=== PATIENT | female | born 1975 | race Caucasian/White ===

== ENCOUNTER 2019-05-23 18:35 | Inpatient (IN) | payer MEDICAID, OTHER ==
--- NOTE | 2019-05-23 19:14 | ED ---
Psych HPI - General Source: patient, police Mode of arrival: ambulatory <Latoya Arauz - Last Filed: 05/23/19 23:15> <Teresa Fernando - Last Filed: 05/24/19 00:19> - General Chief Complaint: Psychiatric Symptoms Stated Complaint: DOCUMENT HEALINGS Time Seen by Provider: 05/23/19 18:56 - History of Present Illness Initial Comments: 43-year-old female patient is brought in by the [facility] department for psychiatric evaluation. Patient's family is concerned regarding her mental state and ability for her to care for her children. She has been sending bizarre text messages to her son's father. When asked why she is here patient states that she is here to "document my healings". Patient states that she was diagnosed with bipolar in 2009 and has cured herself using positive thinking and natural medicine and she would like it documented. Patient denies any suicidal or homicidal ideation. She denies alcohol or drug use. She denies any physical symptoms or concerns. She has had previous mental health admissions in the past. Patient denies any recent rash, fever, chills, shortness breath, chest pain, abdominal pain, nausea, vomiting, diarrhea, constipation, back pain, numbness, tingling, dizziness, weakness, hematuria, dysuria, urinary urgency, urinary frequency, headache, visual changes, or any other complaints. (Latoya Arauz) - Related Data Home Medications Medication Instructions Recorded Confirmed No Known Home Medications 05/23/19 05/23/19 Allergies Allergy/AdvReac Type Severity Reaction Status Date / Time lorazepam [From Ativan] AdvReac AGGRESSION Verified 05/23/19 23:45 Review of Systems ROS Other: All systems not noted in ROS Statement are negative. <Latoya Arauz - Last Filed: 05/23/19 23:15> ROS Other: All systems not noted in ROS Statement are negative. <Teresa Fernando - Last Filed: 05/24/19 00:19> ROS Statement: Those systems with pertinent positive or pertinent negative responses have been documented in the HPI. Past Medical History Past Medical History: No Reported History Additional Past Medical History / Comment(s): pt stated she uses to use acid, and opium History of Any Multi-Drug Resistant Organisms: None Reported Past Surgical History: Section, Hernia Repair Additional Past Surgical History / Comment(s): oral surgery Past Psychological History: Bipolar Smoking Status: Never smoker Past Alcohol Use History: None Reported, Abuse Past Drug Use History: None Reported, Marijuana, Opiates <Latoya Arauz M - Last Filed: 05/23/19 23:15> General Exam Limitations: no limitations General appearance: alert, in no apparent distress, other (This is a well- developed, well-nourished adult female patient in no acute distress. Vital signs upon presentation are temperature 98.3F, pulse 94, respirations 18, blood pressure 124/86, pulse ox 94% on room air.) Eye exam: Present: normal appearance, PERRL, EOMI. Absent: scleral icterus, conjunctival injection, periorbital swelling ENT exam: Present: normal exam, normal oropharynx, mucous membranes moist Respiratory exam: Present: normal lung sounds bilaterally. Absent: respiratory distress, wheezes, rales, rhonchi, stridor Cardiovascular Exam: Present: regular rate, normal rhythm, normal heart sounds. Absent: systolic murmur, diastolic murmur, rubs, gallop, clicks GI/Abdominal exam: Present: soft, normal bowel sounds. Absent: distended, tenderness, guarding, rebound, rigid Neurological exam: Present: alert, oriented X3, CN II-XII intact Psychiatric exam: Present: normal affect, normal mood Skin exam: Present: warm, dry, intact, normal color. Absent: rash <Latoya Arauz M - Last Filed: 05/23/19 23:15> Course Vital Signs 05/23/19 05/23/19 05/23/19 18:44 21:07 22:44 Temperature 98.3 F 98.5 F 98.2 F Pulse Rate 94 89 82 Respiratory 18 16 16 Rate Blood Pressure 124/86 126/89 127/72 O2 Sat by Pulse 94 L 98 96 Oximetry Medical Decision Making <Latoya Arauz M - Last Filed: 05/23/19 23:15> <Teresa Fernando P - Last Filed: 05/24/19 00:19> - Medical Decision Making 43-year-old female patient percents to the emergency department today for psychiatric evaluation. She was seen and evaluated by emergency psychiatric services after medical clearance. It is felt that she would benefit from inpatient admission. She'll be transferred to the mental health unit. (Latoya Arauz) I saw and evaluated the patient who is acutely manic. I completed the psychiatric certification. Patient to be transferred to a psychiatric facility. (Teresa Fernando) - Lab Data Lab Results 05/23/19 Range/Units 19:27 Urine Opiates Screen Not Detected (NotDetected) Ur Oxycodone Screen Not Detected (NotDetected) Urine Methadone Screen Not Detected (NotDetected) Ur Propoxyphene Screen Not Detected (NotDetected) Ur Barbiturates Screen Not Detected (NotDetected) U Tricyclic Antidepress Not Detected (NotDetected) Ur Phencyclidine Scrn Not Detected (NotDetected) Ur Amphetamines Screen Not Detected (NotDetected) U Methamphetamines Scrn Not Detected (NotDetected) U Benzodiazepines Scrn Not Detected (NotDetected) Urine Cocaine Screen Not Detected (NotDetected) U Marijuana (THC) Screen Not Detected (NotDetected) Disposition - Out of Hospital Transfer - Req. Specs Out of Hospital Transfer - Requested Specifics: Psychiatric Non-ICU ([facility]) <Latoya Arauz - Last Filed: 05/23/19 23:15> <Teresa Fernando - Last Filed: 05/24/19 00:19> Clinical Impression: Teresa Disposition: TRANSFER TO PSYCH HOSP/UNIT Condition: Serious
[2019-05-23 19:41] LABS: Amphetamine Screen,Urine Not Detected (NotDetected); Barbiturate Screen,Urine Not Detected (NotDetected); Benzodiazepines Screen,Urine Not Detected (NotDetected); Cocaine Screen,Urine Not Detected (NotDetected); Methadone Screen, Urine Not Detected (NotDetected); Opiate Screen,Urine Not Detected (NotDetected); Oxycodone Screen, Urine Not Detected (NotDetected); Phencyclidine Screen,Urine Not Detected (NotDetected); Tricyclic Antidepressant,Urine Not Detected (NotDetected); Urn Cannabinoid Scrn Not Detected (NotDetected)
[2019-05-23] MEDS ORDERED: MAGNESIUM HYDROXIDE 2,400 MG/10 ML CUP PO PRN (22:57)
[2019-05-23] MEDS ORDERED: MAG HYDROX/AL HYDROX/SIMETH 30 ML CUP PO PRN (22:57)
[2019-05-23] MEDS ORDERED: ACETAMINOPHEN TAB 325 MG TAB PO PRN (22:57)
[2019-05-23] MEDS ORDERED: diphenhydrAMINE 25 MG CAP PO PRN (23:03)
[2019-05-23] MEDS ORDERED: ZIPRASIDONE 20 MG VIAL IM PRN (23:15)
[2019-05-24 07:59] LABS: Glucose,Whole Blood 94 mg/dL (75-99)
[2019-05-24] MEDS ORDERED: ZIPRASIDONE 20 MG CAP PO PRN (11:26)
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
--- NOTE | 2019-05-24 23:11 | P.PN ---
Progress Note - Text Progress Note Date: 05/24/19 patient continues to be delusional and agitated , could not be interviewed at this time
[2019-05-25 08:21] LABS: Basophils # (A) 0.1 k/uL (0-0.2); Basophils % (A) 1 %; Eosinophils # (A) 0.1 k/uL (0-0.7); Eosinophils % (A) 2 %; HCT 44.5 % (34.0-46.0); HGB 14.9 gm/dL (11.4-16.0); Lymphocytes # (A) 1.9 k/uL (1.0-4.8); Lymphocytes % (A) 24 %; MCH 29.6 pg (25.0-35.0); MCHC 33.4 g/dL (31.0-37.0); MCV 88.4 fL (80.0-100.0); Mean Platelet Volume 6.2; Monocytes # (A) 0.6 k/uL (0-1.0); Monocytes % (A) 8 %; Neutrophils # (A) 5.1 k/uL (1.3-7.7); Neutrophils % (A) 63 %; Platelet Count 400 k/uL (150-450); RBC 5.03 m/uL (3.80-5.40); RDW 13.5 % (11.5-15.5); WBC 8.1 k/uL (3.8-10.6)
[2019-05-25 08:37] LABS: ALT 30 U/L (9-52); AST 28 U/L (14-36); African American GFR (CKD) >90 (>60 ml/min/1.73 sqM); Albumin 5.3 g/dL (3.5-5.0); Alkaline Phosphatase 62 U/L (38-126); Anion Gap 15 mmol/L; Blood Urea Nitrogen 11 mg/dL (7-17); Calcium 10.4 mg/dL (8.4-10.2); Carbon Dioxide 24 mmol/L (22-30); Chloride 102 mmol/L (98-107); Cholesterol 183 mg/dL (<200); Glucose 109 mg/dL (74-99); HDL Cholesterol 55 mg/dL (40-60); LDL Cholesterol,Calculated 108 mg/dL (0-99); Potassium 3.5 mmol/L (3.5-5.1); Sodium 141 mmol/L (137-145); Total Protein 8.4 g/dL (6.3-8.2); Triglycerides 101 mg/dL (<150)
--- NOTE | 2019-05-25 11:37 | P.PN ---
Progress Note - Text Progress Note Date: 05/25/19 Clinical Problems: Bipolar disorder most recent episode manic with psychotic features, poor compliance with psychiatric treatment Interim history: I reviewed the medical record, interviewed the patient and discuss her treatment and treatment plan during team meeting. Her presentation today was unchanged from yesterday. She was irritable, digressive and showed marked flight of ideas. She expressed multiple fragmented delusional beliefs that had general grandiose themes. For example, several times during interview she made the comment that she is "over this hospital" and "we all work for her." She again refused to give me permission to talk to her sister. She refused treatment with psychotropic medications including lithium, Seroquel, Abilify, Vrylar or Abilify. She replied to my recommendation with the comment that she no longer slight needs treatment with medications and has "cured myself." The director medical safety was unable to complete the initial physical exam due to the severity of her mental illness. Mental status exam: She presented as a casually dressed in somewhat disheveled appearing 43-year-old female was pleasant on approach. She made eye contact and attended to interview. She had a labile facial expression was consistent with her affect. She was not restless or agitated. Her speech was rapid, digressive and circumstantial. Her affect was labile and at times intense. She denied suicidal ideation or wishes. She did not express hopelessness, helplessness or worthlessness. She did not express clear ideas of reference or paranoid ideation. She has multiple delusional beliefs and overvalued ideas. Her thinking was abstract and associations were not coherent or logical.. However, she did not express clang associations, neologisms or blocking. She denied hallucinations and did not appear to be responding to internal stimuli. Assessment: Overall clinical status remains unchanged from admission. She has signs and symptoms of the bipolar illness. She is refusing treatment with psychotropic medications. Plan: Continue outpatient hospitalization. Continue safety precautions. Petition and supporting clinical certificate's have been submitted to probate court for involuntary hospitalization. Continue Geodon 20 mg by mouth/IM twice a day when necessary for agitation. Encourage participation in therapeutic groups and activities. Evaluate clinical status response to treatment daily basis.
[2019-05-25 20:02] LABS: Hemoglobin A1C 4.7 % (4.0-6.0)
--- NOTE | 2019-05-25 23:29 | P.MDCNMH ---
History of Present Illness H&P Date: 05/25/19 Chief Complaint: medical evaluation 43-year-old female with history of bipolar disorder Patient brought into the hospital by [place] the police department due to family being concerns regarding bizarre behavior at home and didn't think that she was fit to take care of her children. Patient has delusional thoughts but she denies any suicidal ideation. Patient is very circumstantial in her thoughts and labile and her affect. Otherwise she denies any physical complaints at this time or medical concerns she is trying to be holistic and approach and prefers natural remedies to heal. But denies any chest pain trouble breathing fevers chills or coughing denies any abdominal pain nausea vomiting or GI bleeding Review of Systems Pertinent positives as noted in HPI. All other systems were reviewed and are negative Past Medical History Past Medical History: No Reported History Additional Past Medical History / Comment(s): Bipolar Disorder History of Any Multi-Drug Resistant Organisms: None Reported Past Surgical History: Section, Hernia Repair Additional Past Surgical History / Comment(s): oral surgery Past Anesthesia/Blood Transfusion Reactions: No Reported Reaction Past Psychological History: Bipolar Smoking Status: Former smoker Past Alcohol Use History: Abuse Additional Past Alcohol Use History / Comment(s): Pt. admits to a history of alcohol abuse but reports that she has not drank in over 18 years. Past Drug Use History: Marijuana, Opiates Additional Drug Use History / Comment(s): Pt. admits to a history of past use with "opium, hash, acid, Mescaline.". UDS negative currently- 05/24/19 - Past Family History Father Family Medical History: CVA/TIA, Diabetes Mellitus, Hypertension, Liver Disease, Renal Disease, Thyroid Disorder Mother Family Medical History: No Reported History Medications and Allergies Home Medications Medication Instructions Recorded Confirmed Type No Known Home Medications 05/23/19 05/23/19 History Allergies Allergy/AdvReac Type Severity Reaction Status Date / Time lorazepam [From Ativan] AdvReac AGGRESSION Verified 05/23/19 23:45 Physical Exam Constitutional: No acute distress, conversant, pleasant Eyes: Anicteric sclerae, moist conjunctiva, no lid-lag Pupils equal round reactive to light ENMT: NC/AT Oropharynx clear, no erythema, exudates Neck: Supple, FROM, no masses, or JVD No carotid bruits No thyromegaly Lungs: Clear to auscultation Clear to percussion Normal respiratory effort, no accessory muscle use Cardiovascular: Heart regular in rate and rhythm, No murmurs, gallops, or rubs No peripheral edema Abdominal: Soft Nontender, no guarding, rebound or rigidity Abdomen moving with respiration Normoactive bowel sounds No hepatomegaly, No splenomegaly No palpable mass No abdominal wall hernia noted Skin: Normal temperature, tone, texture, turgor No induration No subcutaneous nodules No rash, lesions No ulcers Extremities: No digital cyanosis No clubbing Pedal pulses intact and symmetrical Radial pulses intact and symmetrical No calf tenderness Psychiatric: Alert and oriented to person, place and time labile affect poor judgement Neuro Muscles Strength 5/5 in all 4 extremities Sensation to light touch grossly present throughout Cranial nerves II-XII grossly intact No focal sensory deficits Lymphatics: no palpable cervical or supraclavicular , or inguinal lymph nodes Cranial Nerve Examination - Cranial Nerves Cranial Nerve II- Optic: Intact Cranial Nerve III- Oculomotor: Intact Cranial Nerve IV- Trochlear: Intact Cranial Nerve V- Trigeminal: Intact Cranial Nerve - Abducens: Intact Cranial Nerve VII- Facial: Intact Cranial Nerve VIII- Auditory: Intact Cranial Nerve IX- Glossopharyngeal: Intact Cranial Nerve X- Vagus: Intact Cranial Nerve XI- Accessory: Intact Cranial Nerve XII- Hypoglossal: Intact Results CBC & Chem 7: 05/25/19 08:06 05/25/19 08:06 Labs: Abnormal Lab Results - Last 24 Hours (Table) 05/25/19 Range/Units 08:06 Glucose 109 H (74-99) mg/dL Calcium 10.4 H (8.4-10.2) mg/dL Total Protein 8.4 H (6.3-8.2) g/dL Albumin 5.3 H (3.5-5.0) g/dL LDL Cholesterol, Calc 108 H (0-99) mg/dL Assessment and Plan Assessment: 43-year-old female with history of bipolar disorder presented due to acute manic episode with bizarre behavior medicine consulted for medical management which she currently denies any complaints Plan: acute manic episodes Bipolar disorder Management per psych Denies suicidal or homicidal ideation low risk for DVT patient ambulatory Thank you for allowing us to participate in the care of this patient. We will follow peripherally. Do not hesitate to contact us with questions. Someone can be reached from the [facility] hospitalist group at all hours of the day at [phone].
[2019-05-25] MEDS ORDERED: ZIPRASIDONE 20 MG VIAL IM ONE (23:53)
[2019-05-25] MEDS ORDERED: WATER FOR INJECTION, STERILE 10 ML IV ONE (23:53)
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
--- NOTE | 2019-05-27 13:21 | P.PN ---
Progress Note - Text Progress Note Date: 05/27/19 IDENTIFICATION DATA: 43-year-old single female admitted to [facility] involuntarily with acute symptoms of sandrita. INTERVAL HISTORY: She was rambling through out the interview. 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 She claims working here but claims no one seems to know. She states she knows ins and ou ts of the system . She claims to have healed herself in 2009. She also reports to have worked at [employer] in [employer] system who treat people worse than dogs. MENTAL STATUS EXAMINATION: 43 year old woman who appeared disheveled. Her speech and thought process were pressured and tangential. Her mood is reported as great and affect appropriate. The patient is alert and oriented 4 and in no apparent distress. She is delusional and grandiose. Insight and judgment are limited. ASSESSMENT Bipolar disorder most recent episode manic with psychotic features, poor compliance with psychiatric treatment PLAN: Will start her on Geodon 40mg po daily
[2019-05-27] MEDS: ZIPRASIDONE 40 MG CAP PO SCH (15:02)
[2019-05-28] MEDS: ZIPRASIDONE 40 MG CAP PO SCH (07:51)
--- NOTE | 2019-05-28 16:35 | P.PN ---
Progress Note - Text Progress Note Date: 05/28/19 IDENTIFICATION DATA: 43-year-old single female admitted to [facility] with acute symptoms of sandrita. INTERVAL HISTORY: She is refusing to take psychiatric medications stating she has been clean since 2009. She says she is having fun, feels greatful, joyful and gratitude and does not need anything. She says she can feel energy, taste ocean and air. She says she can touch a painting and feel sand going through. She says she can hear her huband and her grandparents calling out her name. She says she loves others and denies paranoid ideations. She reports good sleep and apetite. She says she likes to dance and has been observed dancing in the hallway. MENTAL STATUS EXAMINATION: 43 year old woman who appeared her stated age in fair grooming and hygeine. . Her speech and thought process were pressured and illogical. Her mood is reported as happy and affect appropriate. The patient is alert and oriented 4 and in no apparent distress. She is delusional and reports auditory halluciantions. Insight and judgment are limited. ASSESSMENT Bipolar disorder most recent episode manic with psychotic features, poor compliance with psychiatric treatment PLAN: She continues to meet criteria for inpatient hospitalization Continue Geodon 40mg po daily
[2019-05-29] MEDS: ZIPRASIDONE 40 MG CAP PO SCH (09:34)
--- NOTE | 2019-05-29 22:42 | PN ---
PROGRESS NOTE DATE OF SERVICE: 05/29/2019. CHIEF COMPLAINT: The patient had erratically behavior, disorganized thinking and showed flight of ideas, grandiosity and delusion. INTERVAL HISTORY: The patient continues to show significant disorganized and delusional thinking. She had an extended discussion with the nurse last evening where she talked at length about traveling throughout the world saving people, working in various underground circumstances. She will communicate in somewhat organized sentences and statements, though it is very difficult to follow her train of thought. She slept fairly well last night. By her report today, she has been up. She will attend some groups though. Her level of participation is limited. When I talked to her, she did not provide any reliable information and talked at length about various happenings throughout the world. She has been declining to take any oral medications. MENTAL STATUS: Patient was restless. At the start of the interview, she gave fairly good eye contact. She then seemed to veer off after a fairly extended discussion. She ended up walking out of the room in an angry manner stating I am not her doctor. For the most part, her thoughts were very disorganized. She made various references. It was hard to follow her train of thought. She spoke in complete sentences some of the time, though also some fragmented statements at other times. Her affect was somewhat intense. She smiled at times. She did make grandiose references. Her mood was elevated. It was difficult to assess orientation. ASSESSMENT: I will continue the current diagnosis and treatment plan. We will continue to make efforts to engage the patient in individual and group therapeutic activities. I had an extensive discussion with the patient in regard to her current situation of having an involuntary hospitalization. Whether or not the patient was able to follow the discussion remains to be seen. The primary issue at this point will be to follow through with the court process for involuntary treatment. MMODL / IJN: [id number] /
[2019-05-30] MEDS: ZIPRASIDONE 40 MG CAP PO SCH (09:59)
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
[2019-05-30 14:25] VITALS: BMI 28.3
[2019-05-31] MEDS: ZIPRASIDONE 40 MG CAP PO SCH (09:28)
--- NOTE | 2019-05-31 12:13 | P.PN ---
Progress Note - Text Progress Note Date: 05/31/19 Chief complaint: "I don't want to talk to you " Subjective: The patient has been seen today as follow-up, chart reviewed, case discussed with the treatment team. Patient slept about 4-5 hours last night as per nursing report. Patient has a court hearing today. She was irritable and continued to present with flight of ideas, disorganized thoughts, speech and behavior and circumstantial. Nursing report patient continued to be disruptive to groups and very intrusive and still has grandiose ideation. As per report from court, the patient tried to act out at the court house and she was screaming. Objective: Vitals has been reviewed. Mental status examination; Appearance: The patient appears stated age, fairly groomed, of average body built, no specific features. Gait/posture: Normal gait, Normal arm swinging: No abnormal movements. Attitude and behavior: Not engaged, not cooperative, intermittent eye contact. Motor activity: Increased psychomotor activity Speech: Talkative, pressured, increased rate. Mood: Evasive, irritable Affect: labile Thought form: Tangential, circumstantial Thought content: Grandiose delusions, denies suicidal thoughts, denies homicidal thoughts, denies intentions or plans. Perception: Denies auditory or visual hallucinations Attention: No impairment. Patient was able to repeat serial 5. Orientation: Patient patient was oriented to time place person and situation. Insight: Patient has no insight about her psychiatric disorder. Judgment: Patient has poor judgment about her psychiatric treatment. Assessment: Bipolar disorder type I, most recent episode manic with psychotic features. Plan: Continue inpatient level of care due to continued to present with acute sandrita that brought to the patient at high risk to hurt self and others. Continue treatment of bipolar disorder provide psychiatric education regarding her diagnosis Precautions: Continue 15 minutes check for safety. Consider medical consultation if any acute medical issues arise. Provide the patient individual, group therapy, substance use disorder counseling to give better insight and learn coping skills. Continue follow-up with the patient daily to monitor progress of manic symptoms and mood symptoms. Medications: Patient refuses discussion of medications and continued to refuse medications. Geodon was ordered by previous psychiatrist but she continued to refuse taking any medications. Will continue encourage the patient to take psychiatric medications to treat bipolar. Obtain court order to start psychiatric medications - Will recommend Abilify or Geodon if patient refused oral Abilify. Discharge patient to OUTPATIENT services upon a stabilization Prognosis: No improvement Expected LOS: 7 days.
[2019-06-01] MEDS: ZIPRASIDONE 40 MG CAP PO SCH (08:58)
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
[2019-06-02] MEDS ORDERED: ARIPiprazole 5 MG TAB PO SCH (09:00)
--- NOTE | 2019-06-02 13:51 | P.PN ---
Progress Note - Text Progress Note Date: 06/02/19 Chief complaint: "I feel very good today " Subjective: The patient has been seen today as follow-up, chart reviewed, case discussed with the treatment team. Patient good sleep last night, but according to nursing report she slept 3.5 hours. Patient has been going to some groups and other unit activities. Patient reports fair appetite. Patient reports feeling better emotionally and her mood is" great". She presents was less pressured speech and more organized thoughts and behavior. Patient was more redirectable today but still has some manic symptoms including grandiose ideation, hyperverbal, and some degree increased activities. Patient is less disruptive and less intrusive with other patients. The patient is compliant with her medications and denies any adverse reactions. She continued to take Abilify. She denies any auditory or visual hallucinations, paranoid ideation, and no delusions could be elicited. She denies feeling hopeless, suicidal, or homicidal. Objective: Vitals has been reviewed. Mental status examination; Appearance: The patient appears stated age, fairly groomed, of average body built, no specific features. Gait/posture: Normal gait, Normal arm swinging: No abnormal movements. Attitude and behavior: Better engaged, more cooperative, intermittent eye contact. Motor activity: Normal psychomotor activity Speech: Talkative, less pressured. Mood: less irritable Affect: Not labile Thought form: Not Tangential, Not circumstantial Thought content: Grandiose ideation, denies suicidal thoughts, denies homicidal thoughts, denies intentions or plans. Perception: Denies auditory or visual hallucinations Attention: No impairment. Orientation: Patient patient was oriented to time place person and situation. Insight: Patient has limited insight about her psychiatric disorder. Judgment: Patient has limited judgment about her psychiatric treatment. Assessment: Bipolar disorder type I, most recent episode manic with psychotic features. Plan: Continue inpatient level of care due to continued to present with acute sandrita that brought to the patient at high risk to hurt self and others. Continue treatment of bipolar disorder provide psychiatric education regarding her diagnosis Precautions: Continue 15 minutes check for safety. Consider medical consultation if any acute medical issues arise. Provide the patient individual, group therapy, substance use disorder counseling to give better insight and learn coping skills. Continue follow-up with the patient daily to monitor progress of manic symptoms and mood symptoms. Medications: Patient agreed to start on Abilify for treatment of bipolar disorder and mood stabilization. Increase Tteohlb59 mg daily as a mood stabilizer. Start melatonin 5 mg at bedtime as needed for insomnia. Geodon was discontinued-patient reports caused her to feel very tired and sedated. Court order was issued to mandate patient inpatient psychiatric hospitalization for further treatment and stabilization of symptoms Discharge patient to OUTPATIENT services upon a stabilization Prognosis: Improving Expected LOS: 4-6 days.
[2019-06-02] MEDS ORDERED: MELATONIN 5 MG TABLET PO PRN (13:52)
[2019-06-03] MEDS ORDERED: ARIPiprazole 10 MG TAB PO SCH (09:00)
[2019-06-03] MEDS ORDERED: ARIPiprazole 5 MG TAB PO ONE (10:06)
--- NOTE | 2019-06-03 10:10 | P.PN ---
Progress Note - Text Interval history: The patient is found in the hallway she follows me to an interview room. Earlier in the morning she was observed dancing in circles and making odd noises. She states that she has a spirit person and last night there was an evil presence on the mental health unit. She was admitted for symptoms of psychosis and sandrita. She is on Abilify 10 mg daily. We discussed that the dosage needs to be titrated further. Initially she demonstrates resistance to that suggestion but as the session progresses she becomes agreeable. She states that she wants to be discharged today to go to her son's recital. Mental status exam: The patient is alert she is dressed in her own clothing hygiene is adequate. Grooming is adequate. She has fluent spontaneous speech she is pressured at times and needs to be redirected. Thought process is tangential. She demonstrates confucianist preoccupation grandiose thinking. She states that she is connected to everybody. She endorses some paranoid thinking. Insight and judgment are impaired. She reports no suicidal or homicidal ideation. She endorses auditory hallucinations but will not describe them. She demonstrates no verbal or physical aggressiveness she demonstrates no involuntary repetitive movements. Plan: The patient remains manic with symptoms of psychosis. We will titrate the Abilify to 15 mg starting today. She is on a court order. If she refuses we will give her Geodon IM. She requires continued psychiatric hospitalization. She is encouraged to appropriately participate in the milieu. Vital signs reviewed.
[2019-06-04] MEDS: ARIPiprazole 15 MG TAB PO SCH (08:14)
--- NOTE | 2019-06-04 13:58 | P.PN ---
Progress Note - Text Interval history: The patient is found in the hallway she follows me to an interview room. She indicates her mood is great. She reports that she slept last night staff reported she slept 6 hours. Appetite stable. She continues to feel that she does not require hospitalization would like to be discharged soon. He feels that she can continue working with her outpatient therapist more successfully than being in here. She has been compliant with the Abilify she has no questions regarding that medication. Mental status exam: The patient is alert she is observed interacting with peers throughout the morning she was observed singing loudly in the hallways this morning. Eye contact is appropriate speech is fluent spontaneous nonpressured she is verbose. She is directable during the session. She reports no suicidal or homicidal ideation intent or plan. Thought process can be circumstantial can be tangential at times. She demonstrates no flight of ideas or loose associations today. She demonstrates an affect that is bright and expansive she demonstrates no verbal or physical aggressiveness. She demonstrates no involu ntary repetitive movements. Insight and judgment limited. She describes future oriented thoughts. Plan: The patient will continue on the Abilify this was just titrated yesterday. It may require further titration. We will monitor her for safety and encourage participation in the milieu. Vital signs are reviewed.
[2019-06-05] MEDS: ARIPiprazole 15 MG TAB PO SCH (08:36)
--- NOTE | 2019-06-05 15:41 | P.PN ---
Progress Note - Text Progress Note Date: 06/05/19 Clinical Problems: Bipolar disorder most recent episode manic Interim history: I reviewed the medical record, interviewed the patient and discussed her treatment and treatment plan during team meeting. She is disheartened that the probate Court physician primary care sports medicine ordered involuntary psychiatric treatment last week. She started Abilify after the probate hearing and the dose was increased to 15 mg daily on Wednesday. She reported no adverse effects from the increased dose of Abilify. She remains opposed to treatment with psychotropic medicaitons but was less resistant to my opinion that she has a bipolar illness. She talked about past experiences with psychiatric medications and the side effects including marked weight gain. Mental status exam: She presented as a casually groomed 43-year-old female who was pleasant on approach. She made eye contact and attended to interview. She had no prominent physical abnormalities or distinguishing features. She was not agitated or restless. She showed no abnormal movements. Her speech was spontaneous and had normal rate, rhythm and volume. Her affect was stable and appropriate. She did not express suicidal ideation, wishes or homicidal ideation. She did not express such depressive cognitions as hopelessness, helplessness or worthlessness. She did not express ideas reference, paranoid ideation, magical ideation or delusions. Her S associations were intact and logical. She denied hallucinations and did not appear to be responding to internal stimuli. Assessment: Overall, she is much less manic than on admission. She continues to struggle with accepting the diagnosis of bipolar illness and need for treatment with psychotropic medications. Plan: Continue psychiatric hospitalization. Continue safety precautions. Continue Abilify 50 mg daily and monitor for clinical effect and tolerance. Encouraged continued participation in therapeutic groups and activities. Evaluate current status response to treatment daily basis.
[2019-06-06] MEDS: ARIPiprazole 15 MG TAB PO SCH (09:07)
--- NOTE | 2019-06-06 15:53 | P.PN ---
Progress Note - Text Progress Note Date: 06/06/19 Clinical Problems: Bipolar disorder most recent episode manic Interim history: I reviewed the medical record, interviewed the patient and discussed her treatment and treatment plan during team meeting. She began interview stating that she was offended when I asked her if I can speak with her sister. She explained and a circumstantial and digressive manner her family relationships. During the conversation she revisited several things from prior encounters. 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 She became overly emotional when talking about her grandmother. Apparently, her grandmother has a dementia and her aunt is the guardian. Sometime last year or earlier this year her grandmother moved to [place] to live with the aunt. She is angry with her aunt for having moved her grandmother away from her. Mental status exam: She presented as a casually groomed 43-year-old female who was pleasant on approach. She made eye contact and attended to the interview. She had no prominent physical abnormalities or distinguishing features. She was not agitated or restless. She showed no abnormal movements. Her speech is spontaneous and had normal rate, rhythm and volume. His affect was somewhat depressed but appropriate. She did not express suicidal ideation or wishes. She did not express feelings of hopelessness, helplessness or worthlessness. Her speech was circumstantial and her answers to questions were digressive and over elaborated. She has flight of ideas and perseveration without clang associations. She expressed some grandiosity in terms of her talents and successes and abilities but did not express clear delusional beliefs. Assessment: Overall she is much less manic than on admission. She continues to have symptoms of hypomania as demonstrated by flight of ideas, grandiosity, circumstantiality. Plan: Continue psychiatric hospitalization. Continue suicide precautions. Continue Abilify 15 mg daily and monitor for clinical effect and tolerance. Encouraged continued participation in therapeutic groups and activities. Evaluate clinical status and response to treatment on a daily basis.
[2019-06-07 06:59] VITALS: RESP 16
[2019-06-07] MEDS: ARIPiprazole 15 MG TAB PO SCH (08:50)
--- NOTE | 2019-06-07 15:16 | P.PN ---
Progress Note - Text Progress Note Date: 06/07/19 Clinical Problems: Bipolar disorder most recent episode manic Interim history: I reviewed the medical record, interviewed the patient and discussed her treatment and treatment plan during team meeting. She talked about a difficult conversation with her father yesterday. During the conversation she alleged that he told her he wanted her "to stay in the hospital." She alleged that she is unaware of the reason for him making this statement. She reported that she is sleeping soundly throughout the night. She able to concentrate and attend. During the interview she was able to remain on topic and did not digressive and did not demonstrate flight of ideas. We talked about her psychiatric treatment. She plans to continue Abilify as long as she is on a court order. She continues to question the need for psychiatric treatment and questions whether she has a bipolar illness. She denied side effects to Abilify. Mental status exam: She presented as a casually groomed 43-year-old female who was pleasant on approach. She made eye contact and attended to the interview. She had no prominent physical abnormalities or distinguishing features. She was not agitated or restless. She showed no abnormal movements. Her speech was spontaneous and had normal rate, rhythm and volume. His affect calm, stable and appropriate. She did not express suicidal ideation or wishes. She did not express feelings of hopelessness, helplessness or worthlessness. Her speech was not circumstantial and her answers to questions were not digressive and over elaborated. She did not have flight of ideas and did not perseverate. She did not express grandiosity in terms of her talents and successes and abilities and did not express clear delusional beliefs. Assessment: Overall she is much less manic than on admission. She has minimal symptoms of hypomania but has minimal insight or understanding of her illness and continued need of psychiatric treatment. Plan: Continue psychiatric hospitalization. Continue suicide precautions. Continue Abilify 15 mg daily and monitor for clinical effect and tolerance. Encouraged continued participation in therapeutic groups and activities. Evaluate clinical status and response to treatment on a daily basis.
[2019-06-08 01:21] VITALS: BP 117/74; PULSE 123; TEMP 98.4
[2019-06-08] MEDS: ARIPiprazole 15 MG TAB PO SCH (08:56)
--- NOTE | 2019-06-08 12:52 | P.DS ---
Providers Date of admission: 05/23/19 22:42 Attending physician: Aakash Moreno MD Consults: 05/23/19 22:57 Consult Physician Routine Consulting Provider: Grcae Physician Consult Reason/Comments: H&P and medical Do you want consulting provider notified?: Yes Primary care physician: Stated None - Discharge Diagnosis(es) (1) Bipolar disorder, current episode manic severe with psychotic features Status: Chronic Priority: High Hospital Course: She is a 43-year-old single female who has history of a bipolar illness. She presented to the [facility] involuntarily. Her sister completed the petition complaining of aggressive and manic behaviors. At the time of admission she was restless and irritable and demonstrated flight of ideas, grandiosity and fragmented grandiose delusional beliefs. She denied that she had a mental illness and denied need for psychiatric treatment. She refused to resume her former psychotropic medications. We completed the clinical certificate in support of her involuntary hospitalizations. She had a probate hearing and received a combined involuntary treatment order. After the court hearing she agreed to start Abilify and the dose was gradually titrated to 15 mg per day. Her history is significant in that she stopped her psychotropic medications last summer when her involuntary treatment order . After she started the Abilify her manic symptoms subsided. At the time of discharge she was sleeping 6-7 hours per night. She is able concentrate, focus and attention. Her speech was not rapid and she no longer expressed grandiose delusional beliefs. She experienced no adverse effects from the Abilify. At time of discharge she was neatly groomed and pleasant on approach. She made eye contact and attended to the interview. She had no prominent physical abnormalities or distinguishing features. She was not agitated or restless. She showed no abnormal movements. Her speech was spontaneous and had normal rate, rhythm and volume. His affect calm, stable and appropriate. She did not express suicidal ideation or wishes. She did not express feelings of hopelessness, helplessness or worthlessness. Her speech was not circumstantial and her answers to questions were not digressive and over elaborated. She did not have flight of ideas and did not perseverate. She did not express grandiosity in terms of her talents and successes and abilities and did not express clear delusional beliefs. Patient Condition at Discharge: Good Plan - Discharge Summary Discharge Rx Participant: No New Discharge Prescriptions: New ARIPiprazole [Abilify] 15 mg PO DAILY 30 Days #30 tab Melatonin 5 mg PO HS PRN 30 Days #30 tablet PRN Reason: Insomnia Discharge Medication List ARIPiprazole [Abilify] 15 mg PO DAILY 30 Days #30 tab 06/08/19 [Rx] Melatonin 5 mg PO HS PRN 30 Days #30 tablet 06/08/19 [Rx] Follow up Appointment(s)/Referral(s): intake,intake [Other] - [facility] - 06/13/19 10:30 am (w/Shilpa) [facility] Patient Instructions/Handouts: Bipolar Disorder (DC) Activity/Diet/Wound Care/Special Instructions: Activity and diet as tolerated. No guns or weapons in the home. Refrain from alcohol and street drugs not prescribed by your physicians. Take all medica tions as prescribed, and attend all follow up appointments as scheduled. If in need of medication refills, please go to your Primary care physician, or your out patient psychiatric provider. If in crisis, please go to the nearest ER for an evaluation, or call . Discharge Disposition: HOME SELF-CARE
== END 2019-06-08 12:30 | disposition home or self-care (01) | DRG 885 ==
LOC: EC 18:35 → EEVIPCON 18:35 → 3MHU 22:42
PROVIDERS: ADMIT Psychiatry & Neurology Psychiatry; ATTEND Psychiatry & Neurology Psychiatry
DX: F31.2 Bipolar disorder, current episode manic severe with psychotic features (principal); T43.96XA Underdosing of unspecified psychotropic drug, initial encounter; Z91.128 Patient's intentional underdosing of medication regimen for other reason; Z88.8 Allergy status to other drugs, medicaments and biological substances; Y04.0XXA Assault by unarmed brawl or fight, initial encounter; Z79.899 Other long term (current) drug therapy
CPT/HCPCS: 80053; 80061; 80306; 81025; 82075; 83036; 84443; 85025; 99285

== ENCOUNTER 2023-11-15 19:12 | Inpatient (IN) | payer MEDICAID, OTHER ==
[2023-11-15 22:45] LABS: Appearance,Urine Cloudy (Clear); Bacteria,Urine Many /hpf; Bilirubin,Urine Negative (Negative); Blood,Urine Negative (Negative); Color,Urine Light Yellow; Glucose,Urine (UA) Negative (Negative); Ketones,Urine 3+ (Negative); Leukocyte Esterase,Urine Small (Negative); Mucus,Urine Occasional /hpf; Nitrite,Urine Negative (Negative); PH, Urine 5.5 (5.0-8.0); Protein,Urine Trace (Negative); RBC,Urine 1 /hpf (0-5); Specific Gravity,Urine 1.013 (1.001-1.035); Squamous Epithelial Cell,Urine 14 /hpf (0-4); Urobilinogen,Urine <2.0 mg/dL (<2.0); WBC,Urine 2 /hpf (0-5)
--- NOTE | 2023-11-15 22:46 | ED ---
General Adult HPI - General Chief complaint: Psychiatric Symptoms Stated complaint: Petition Time Seen by Provider: 11/15/23 19:30 Source: patient, police, RN notes reviewed Mode of arrival: ambulatory Limitations: no limitations - History of Present Illness Initial comments: 48-year-old female presents to the emergency department for evaluation of mental health concerns. Patient states that she is concerned because she can no longer feel her boyfriend and her body. She states that she "just wants to be together." She states that she can no longer feel his heart beating in her chest. She does report that she is hallucinating. She states that she is seeing "everything."Denies SI, HI. - Related Data Previous Rx's Medication Instructions Recorded ARIPiprazole [Abilify] 15 mg PO DAILY 30 Days #30 tab 06/08/19 Melatonin 5 mg PO HS PRN 30 Days #30 tablet 06/08/19 Allergies Allergy/AdvReac Type Severity Reaction Status Date / Time lorazepam [From Ativan] AdvReac AGGRESSION Verified 11/15/23 19:25 Review of Systems ROS Statement: Those systems with pertinent positive or pertinent negative responses have been documented in the HPI. ROS Other: All systems not noted in ROS Statement are negative. Past Medical History Past Medical History: No Reported History Additional Past Medical History / Comment(s): Bipolar Disorder History of Any Multi-Drug Resistant Organisms: None Reported Past Surgical History: Section, Hernia Repair Additional Past Surgical History / Comment(s): oral surgery Past Anesthesia/Blood Transfusion Reactions: No Reported Reaction Past Psychological History: Bipolar Past Alcohol Use History: Abuse Past Drug Use History: Marijuana, Opiates - Past Family History Father Family Medical History: CVA/TIA, Diabetes Mellitus, Hypertension, Liver Disease, Renal Disease, Thyroid Disorder Mother Family Medical History: No Reported History General Exam Limitations: no limitations General appearance: alert, anxious Head exam: Present: atraumatic, normocephalic, normal inspection Eye exam: Present: normal appearance, PERRL, EOMI. Absent: scleral icterus, conjunctival injection, periorbital swelling Respiratory exam: Present: normal lung sounds bilaterally. Absent: respiratory distress, wheezes, rales, rhonchi, stridor Cardiovascular Exam: Present: normal rhythm, tachycardia, normal heart sounds. Absent: systolic murmur, diastolic murmur, rubs, gallop, clicks Neurological exam: Present: alert Psychiatric exam: Present: agitated, other (Delusional) Skin exam: Present: warm, dry, intact, normal color. Absent: rash Course Vital Signs 11/15/23 19:21 Temperature 98.4 F Pulse Rate 115 H Respiratory 18 Rate Blood Pressure 138/93 O2 Sat by Pulse 98 Oximetry Medical Decision Making - Medical Decision Making Was pt. sent in by a medical professional or institution (, LE, FOOD AND BEVERAGE COORDINATOR, urgent care, hospital, or longterm...) When possible be specific @ -No Did you speak to anyone other than the patient for history (EMS, parent, family, police, friend...)? What history was obtained from this source @ -No Did you review nursing and triage notes (agree or disagree)? Why? @ -I reviewed and agree with nursing and triage notes Were old charts reviewed (outside hosp., previous admission, EMS record, old EKG, old radiological studies, urgent care reports/EKG's, longterm records)? Report findings @ -No old charts were reviewed Differential Diagnosis (chest pain, altered mental status, abdominal pain women, abdominal pain men, vaginal bleeding, weakness, fever, dyspnea, syncope, headache, dizziness, GI bleed, back pain, seizure, CVA, palpatations, mental health, musculoskeletal)? @ -Differential Mental Health Depression, anxiety, bipolar, psychosis, schizophrenia, borderline personality, situational depression, adjustment disorder, behavioral disorder, brain tumor, malingering, substance abuse, encephalopathy, medication reaction, dementia, h ypothyroidism, degenerative neurologic disorder, lupus.... This is not meant to be all-inclusive list EKG interpreted by me (3pts min.). @ -None X-rays interpreted by me (1pt min.). @ -None done CT interpreted by me (1pt min.). @ -None done U/S interpreted by me (1pt. min.). @ -None done What testing was considered but not performed or refused? (CT, X-rays, U/S, labs)? Why? @ -None What meds were considered but not given or refused? Why? @ -None Did you discuss the management of the patient with other professionals (professionals i.e. , LE, FOOD AND BEVERAGE COORDINATOR, lab, RT, psych nurse, manager social media, academic support director, teacher, chief operating officer, rn case manager)? Give summary @ -Management discussed with emergency psychiatric services, recommend inpatient treatment Was smoking cessation discussed for >3mins.? @ -No Was critical care preformed (if so, how long)? @ -No Were there social determinants of health that impacted care today? How? (Homelessness, low income, unemployed, alcoholism, drug addiction, trans portation, low edu. Level, literacy, decrease access to med. care, custodial, rehab)? @ -No Was there de-escalation of care discussed even if they declined (Discuss DNR or withdrawal of care, Hospice)? DNR status @ -No What co-morbidities impacted this encounter? (DM, HTN, Smoking, COPD, CAD, Cancer, CVA, ARF, Chemo, Hep., AIDS, mental health diagnosis, sleep apnea, morbid obesity)? @ -None Was patient admitted / discharged? Hospital course, mention meds given and route, prescriptions, significant lab abnormalities, going to OR and other pertinent info. @ -Admitted. Patient presented to the emergency department for mental health evaluation. Patient delusional in the room. She denies any physical symptoms. She was medically cleared for EPS evaluation. EPS evaluated patient and inpatient treatment was recommended. CERT was completed by Dr. Chapman Undiagnosed new problem with uncertain prognosis? @ -No Drug Therapy requiring intensive monitoring for toxicity (Heparin, Nitro, Insuli n, Cardizem)? @ -No Were any procedures done? @ -No Diagnosis/symptom? @ -Acute psychosis Acute, or Chronic, or Acute on Chronic? @ -Acute Uncomplicated (without systemic symptoms) or Complicated (systemic symptoms)? @ -complicated Side effects of treatment? @ -No Exacerbation, Progression, or Severe Exacerbation? @ -No Poses a threat to life or bodily function? How? (Chest pain, USA, MS, pneumonia, PE, COPD, DKA, ARF, appy, cholecystitis, CVA, Diverticulitis, Homicidal, Suicidal, threat to staff... and all critical care pts) @ -Yes - Lab Data Result diagrams: 11/16/23 07:37 11/16/23 07:37 Lab Results 11/15/23 11/15/23 11/15/23 Range/Units 22:20 22:20 22:20 Urine Color Light Yellow Urine Appearance Cloudy H (Clear) Urine pH 5.5 (5.0-8.0) Ur Specific [place] 1.013 (1.001-1.035) Urine Protein Trace H (Negative) Urine Glucose (UA) Negative (Negative) Urine Ketones 3+ H (Negative) Urine Blood Negative (Negative) Urine Nitrite Negative (Negative) Urine Bilirubin Negative (Negative) Urine Urobilinogen <2.0 (<2.0) mg/dL Ur Leukocyte Esterase Small H (Negative) Urine RBC 1 (0-5) /hpf Urine WBC 2 (0-5) /hpf Ur Squamous Epith Cells 14 H (0-4) /hpf Urine Bacteria Many H (None) /hpf Urine Mucus Occasional H (None) /hpf Urine HCG, Qual Not Detected (Not Detectd) Urine Opiates Screen Not Detected (NotDetected) Ur Oxycodone Screen Not Detected (NotDetected) Urine Methadone Screen Not Detected (NotDetected) Ur Barbiturates Screen Not Detected (NotDetected) U Tricyclic Antidepress Not Detected (NotDetected) Ur Phencyclidine Scrn Not Detected (NotDetected) Ur Amphetamines Screen Not Detected (NotDetected) U Methamphetamines Scrn Not Detected (NotDetected) U Benzodiazepines Scrn Not Detected (NotDetected) Urine Cocaine Screen Not Detected (NotDetected) U Marijuana (THC) Screen Not Detected (NotDetected) Coronavirus (PCR) (Not Detectd) 11/16/23 Range/Units 00:00 Urine Color Urine Appearance (Clear) Urine pH (5.0-8.0) Ur Specific [place] (1.001-1.035) Urine Protein (Negative) Urine Glucose (UA) (Negative) Urine Ketones (Negative) Urine Blood (Negative) Urine Nitrite (Negative) Urine Bilirubin (Negative) Urine Urobilinogen (<2.0) mg/dL Ur Leukocyte Esterase (Negative) Urine RBC (0-5) /hpf Urine WBC (0-5) /hpf Ur Squamous Epith Cells (0-4) /hpf Urine Bacteria (None) /hpf Urine Mucus (None) /hpf Urine HCG, Qual (Not Detectd) Urine Opiates Screen (NotDetected) Ur Oxycodone Screen (NotDetected) Urine Methadone Screen (NotDetected) Ur Barbiturates Screen (NotDetected) U Tricyclic Antidepress (NotDetected) Ur Phencyclidine Scrn (NotDetected) Ur Amphetamines Screen (NotDetected) U Methamphetamines Scrn (NotDetected) U Benzodiazepines Scrn (NotDetected) Urine Cocaine Screen (NotDetected) U Marijuana (THC) Screen (NotDetected) Coronavirus (PCR) Not Detected (Not Detectd) Disposition Clinical Impression: Acute psychosis, Delusions Disposition: TRANSFER TO PSYCH HOSP/UNIT Condition: Stable Is patient prescribed a controlled substance at d/c from ED?: No
[2023-11-15 22:50] LABS: Amphetamine Screen,Urine Not Detected (NotDetected); Barbiturate Screen,Urine Not Detected (NotDetected); Benzodiazepines Screen,Urine Not Detected (NotDetected); Cocaine Screen,Urine Not Detected (NotDetected); Methadone Screen, Urine Not Detected (NotDetected); Opiate Screen,Urine Not Detected (NotDetected); Oxycodone Screen, Urine Not Detected (NotDetected); Phencyclidine Screen,Urine Not Detected (NotDetected); Tricyclic Antidepressant,Urine Not Detected (NotDetected); Urn Cannabinoid Scrn Not Detected (NotDetected)
[2023-11-16] MEDS ORDERED: haloperidoL 5 MG TAB PO PRN (02:33)
[2023-11-16] MEDS ORDERED: HALOPERIDOL LACTATE 5 MG/ML 1 ML VIAL IM PRN (02:33)
[2023-11-16] MEDS ORDERED: LORazepam 1 MG TAB PO PRN (02:33)
[2023-11-16] MEDS ORDERED: IBUPROFEN 600 MG TAB PO PRN (02:33)
[2023-11-16] MEDS ORDERED: LORazepam 2 MG/ML INJ IM PRN (02:33)
[2023-11-16] MEDS ORDERED: ACETAMINOPHEN TAB 325 MG TAB PO PRN (02:33)
[2023-11-16] MEDS ORDERED: QUEtiapine 50 MG TAB PO PRN (02:35)
[2023-11-16] MEDS ORDERED: MAG HYDROX/AL HYDROX/SIMETH 355 ML BOTTLE PO PRN (08:00)
[2023-11-16] MEDS: NICOTINE 14MG/24HR PATCH TRANSDERM SCH (08:08)
[2023-11-16 08:48] LABS: Basophils # (A) 0.1 k/uL (0-0.2); Basophils % (A) 1 %; Eosinophils # (A) 0.1 k/uL (0-0.7); Eosinophils % (A) 0 %; HCT 43.4 % (34.0-46.0); HGB 13.6 gm/dL (11.4-16.0); Lymphocytes # (A) 2.8 k/uL (1.0-4.8); Lymphocytes % (A) 19 %; MCH 27.6 pg (25.0-35.0); MCHC 31.4 g/dL (31.0-37.0); MCV 87.9 fL (80.0-100.0); Mean Platelet Volume 7.8; Monocytes # (A) 0.9 k/uL (0-1.0); Monocytes % (A) 6 %; Neutrophils # (A) 10.5 k/uL (1.3-7.7); Neutrophils % (A) 72 %; Platelet Count 390 k/uL (150-450); RBC 4.93 m/uL (3.80-5.40); RDW 13.8 % (11.5-15.5); WBC 14.7 k/uL (3.8-10.6)
[2023-11-16] MEDS ORDERED: MAGNESIUM HYDROXIDE 2,400 MG/30 ML CUP PO PRN (09:00)
[2023-11-16 09:19] LABS: ALT 31 U/L (4-34); AST 34 U/L (14-36); African American GFR (CKD) >90 (>60 ml/min/1.73 sqM); Albumin 5.2 g/dL (3.5-5.0); Alkaline Phosphatase 83 U/L (38-126); Anion Gap 18 mmol/L; Bilirubin, Delta 0.4 mg/dL (0.0-0.2); Bilirubin,Unconjugated 0.5 mg/dL (0.0-1.1); Blood Urea Nitrogen 17 mg/dL (7-17); Calcium 10.1 mg/dL (8.4-10.2); Carbon Dioxide 16 mmol/L (22-30); Chloride 106 mmol/L (98-107); Glucose 97 mg/dL (74-99); Non-African American GFR(CKD) >90 (>60 ml/min/1.73 sqM); Potassium 3.7 mmol/L (3.5-5.1); Sodium 140 mmol/L (137-145); Total Bilirubin 0.9 mg/dL (0.2-1.3); Total Protein 8.1 g/dL (6.3-8.2)
[2023-11-16] MEDS ORDERED: traZODone HCL 100 MG TAB PO PRN (11:41)
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
[2023-11-16] MEDS: PALIPERIDONE 3 MG TAB.ER.24 PO SCH (12:14)
[2023-11-16 16:10] LABS: Chol/HDL Ratio 3.23 Ratio; LDL Cholesterol,Calculated 92.9 mg/dL (0.0-131.0)
--- NOTE | 2023-11-17 09:45 | P.PN ---
Progress Note - Text Progress Note Date: 11/17/23 Interval History: Patient was seen sitting on the floor by the nurses station, and was not agree able to speak with keno writer/runner. continues to have a discheveled appearance, looking down the hallways, responding to internal stimuli. Patient stated she only has one word for keno writer/runner, and it is "just chill". Patient then preceded to start growling and hissing at keno writer/runner, and would not say anything else. Patient is not compliant with meds, will await court process. uncooperative with interview. MENTAL STATUS EXAM: General Appearance: Patient appears to be older than stated age is alert, Uncooperative due to psychosis. Patient appears to have very poor hygiene and grooming. Disheveled, very dirty, and matted long hair. Behavior: Patient is seated without any agitated behavior. Making bizarre hand gestures Speech: Patient's speech is fluent and nonpressured, growling and hissing at keno writer/runner Mood/Affect: Patient reports their mood is "just chill", affect is congruent and constricted. Suicidality/Homicidality: unable to assess Perceptions: unable to assess Though content There is evidence of any delusional thought content and thought process is circumstantial, patient is responding to internal stimuli, making bizarre hand gestures and noises. Memory and concentration: unable to assess Judgment and insight: poor IMPRESSIONS: bipolar disorder, sandrita with psychotic features nicotine dependance noncompliance with medication PLAN: -Patient is admitted under involuntary] status to MHU for stabilization of psychiatric symptoms and safety. Patient has not signed adult voluntary form or medication consent and is placed in patient's chart. -Medications : Invega 3mg BID for psychosis, Trazodone 100mg prn qhs for sleep. patient is currently refusing PO meds. -Ativan and Haldol PRN for agitation/aggression -NRT -nicotine patch -SW on board for discharge planning. Encourage patient to participate in groups to work on coping skills. Will await deferral and court date
[2023-11-17] MEDS ORDERED: OLANZapine 10 MG TAB PO PRN (11:43)
--- NOTE | 2023-11-17 15:34 | P.PN ---
Progress Note - Text Progress Note Date: 11/17/23 I attempted to see this patient. She refuses to be seen at this time. Will re- attempt at a later time.
[2023-11-17] MEDS ORDERED: WATER FOR INJECTION, STERILE 10 ML IV ONE (18:22)
[2023-11-17] MEDS: OLANZapine 10 MG VIAL IM PRN (18:24)
[2023-11-18] MEDS ORDERED: WATER FOR INJECTION, STERILE 10 ML IV ONE (00:49)
--- NOTE | 2023-11-18 11:37 | P.PN ---
Progress Note - Text Progress Note Date: 11/18/23 Interval History: Patient was seen standing by the nurses station, and was agreeable to speak with feature writer. Patient states that she is doing "amazing" today. continues to have a disheveled appearance. Patient was holding multiple papers and clothing items. When feature writer asked why she was carrying so much stuff, patient replied, "I'm taking it home to prove that we all exist" She then stated she has been to [facility] and [facility], and she knows what is going on in the world. She then exclaimed, "I'm outta here, no termite control representative will tell me what to do!" Patient continues to respond to internal stimuli, picking at things in the air that are not there, speaking in circles, and talking nonsensical. Patient continues to be very bizarre, and unable to redirect. Patient continues refusing meds. Court hearing is scheduled for 11/23. MENTAL STATUS EXAM: General Appearance: Patient appears to be older than stated age is alert, Uncooperative due to psychosis. Patient appears to have very poor hygiene and grooming. Disheveled, very dirty, and matted long hair. Behavior: Patient is seated without any agitated behavior. Making bizarre hand gestures Speech: Patient's speech is fluent and nonpressured, speaking in circles, and nonsensical. Mood/Affect: Patient reports their mood is "amazing", affect is congruent and constricted. Suicidality/Homicidality: denies Perceptions: disorganized and bizarre Though content There is evidence of delusional thought content and thought process is circumstantial and disorganized., patient is responding to internal stimuli, making bizarre hand gestures and noises. Memory and concentration: unable to assess Judgment and insight: poor/impulsive IMPRESSIONS: bipolar disorder, sandrita with psychotic features nicotine dependance noncompliance with medication PLAN: -Patient is admitted under involuntary status to MHU for stabilization of psychiatric symptoms and safety. Patient has not signed adult voluntary form or medication consent and is placed in patient's chart. Court hearing 11/23 -Medications : Invega 3mg BID for psychosis, Trazodone 100mg prn qhs for sleep. patient is currently refusing PO meds. -Ativan and Haldol PRN for agitation/aggression -NRT -nicotine patch -SW on board for discharge planning. Encourage patient to participate in groups to work on coping skills. Will await court date on 11/23. Patient did not defer with attorney general.
[2023-11-18] MEDS: chlorproMAZINE 25 MG/ML 2 ML AMP IM ONE (15:25)
[2023-11-18] MEDS: diphenhydrAMINE 50 MG/ML 1 ML VIAL IM ONE (15:26)
[2023-11-19] MEDS ORDERED: chlorproMAZINE 25 MG TAB PO PRN (11:19)
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
[2023-11-19] MEDS: diphenhydrAMINE 50 MG/ML 1 ML VIAL IM PRN (14:24)
[2023-11-19] MEDS: chlorproMAZINE 25 MG/ML 2 ML AMP IM PRN (14:25)
--- NOTE | 2023-11-20 11:14 | P.PN ---
Subjective Progress Note Date: 11/20/23 Principal diagnosis: IMPRESSIONS: bipolar disorder, sandrita with psychotic features nicotine dependance noncompliance with medication Patient Name: Indy Harrington Date of : 77 Patient Status: Inpatient Attending Provider: Santino Rapp Date: 11/20/23 Initialization Date: 11/19/23 08:45 Interval History: the patient was seen chart was reviewed and case discussed with the nursing staff The patient was wandering in the hallway and was flagged down near the chalkboard where she was trying to change some writing on the wall Staff earlier had noted that she was also kissing the chart and had to be remov ed Patient then demanded that I walk to her room patient would not tell me her room number was trying to market name down on the sheet however patient continues to demand that I open the door since I was a man and that I should walk with her Patient is talked remains nonsensical circumstantial and tangential Patient continues to be very bizarre, and unable to redirect. staff is reported that the patientPatient continues refusing meds. Is sometimes requiring PRN injections for agitation and intrusive behaviors. Court hearing is scheduled for 11/23. MENTAL STATUS EXAM: General Appearance: Patient appears to be older than stated age is alert, Uncooperative due to psychosis. Patient appears to have very poor hygiene and grooming. Disheveled, very dirty, and matted long hair. Behavior: Patient is walking around without any agitated behavior. Speech: Patient's speech is fluent and nonpressured, speaking in circles, and nonsensical. Mood/Affect: Patient reports their mood is "good", affect is congruent and constricted. Suicidality/Homicidality: denies Perceptions: disorganized and bizarre Though content There is evidence of delusional thought content and thought process is circumstantial and disorganized., patient is responding to internal stimuli, Memory and concentration: unable to assess Judgment and insight: poor/impulsive IMPRESSIONS: bipolar disorder, sandrita with psychotic features nicotine dependance noncompliance with medication PLAN: -Patient is admitted under involuntary status to MHU for stabilization of psychiatric symptoms and safety. Patient has not signed adult voluntary form or medication consent and is placed in patient's chart. Court hearing 11/23 -Medications : Invega 3mg BID for psychosis, Trazodone 100mg prn qhs for sleep. patient is currently refusing PO meds. -Ativan and Haldol PRN for agitation/aggression -NRT -nicotine patch - on board for discharge planning. Encourage patient to participate in groups to work on coping skills. Will await court date on 11/23. Patient did not defer with director energy. encouraged to parts been on the [facility] Jeffrey Lamas M.D. Objective - Vital Signs Vital signs: Vital Signs Temp 98.1 F 11/20/23 06:00 Pulse 132 H 11/20/23 08:46 Resp 18 11/20/23 06:00 BP 142/71 11/20/23 08:46 Pulse Ox 99 11/20/23 06:00 FiO2 - Labs CBC & Chem 7: 11/16/23 07:37 11/16/23 07:37
--- NOTE | 2023-11-21 04:34 | P.CONS ---
History of Present Illness - Reason for Consult Consult date: 11/21/23 - History of Present Illness The patient is a 48-year-old female with a PMH of bipolar disorder who had presented to the emergency room for psychiatric evaluation as she was having strange thoughts and acting bizarre. The patient was admitted to the mental health unit where she was seen and evaluated accompanied by mental health unit RN. The patient had flight of ideas during the interview and was pacing in her room. She denied any physical complaints at the time of interview however. She denied using illicit substances, tobacco, or alcohol use. Denied experiencing chest discomfort, shortness of breath, fever, chills, cough, nausea, vomiting, abdominal pain, diarrhea Review of systems: Pertinent positives and negatives as discussed in HPI, a complete review of systems was performed and all other systems are negative. Physical examination: General: non toxic, no distress, appears at stated age, obese Derm: no unusual rashes/lesions, no unusual ecchymoses, warm, dry Head: atraumatic, normocephalic, symmetric Eyes: EOMI, no lid lag, anicteric sclera ENT: Nose and ears atraumatic, no thrush, no pharyngeal erythema Neck: trachea midline, supple Mouth: no lip lesion, mucus membranes moist Cardiovascular: S1S2 reg, no murmur, no edema Lungs: CTA bilateral, no rhonchi, no rales , no accessory muscle use Abdominal: soft, nontender to palpation, no guarding Ext: no gross muscle atrophy, no contractures, Neuro: No gross focal neuro deficits noted Psych: Alert, oriented, labile affect Assessment: Leukocytosis, likely due to acute stressor with no signs of active infection at this time Abnormal UA, likely contaminated Psychosis Imaging: None performed Data Review: Laboratory evaluation reviewed with WBC count 14.7, UA showing 14 squamous cells with 2 WBCs with urine toxicology unremarkable Plan: Monitor CBC for resolution of leukocytosis Defer management of psychosis to primary psychiatry service Thank you for allowing us to participate in the care of this patient. We will follow peripherally. Do not hesitate to contact us with questions. Someone can be reached from the [facility] hospitalist group at all hours of the day at [phone]. Past Medical History Past Medical History: No Reported History Additional Past Medical History / Comment(s): Bipolar Disorder History of Any Multi-Drug Resistant Organisms: None Reported Past Surgical History: Section, Hernia Repair Additional Past Surgical History / Comment(s): oral surgery Past Anesthesia/Blood Transfusion Reactions: No Reported Reaction Past Psychological History: Bipolar Past Alcohol Use History: Abuse Past Drug Use History: Marijuana, Opiates - Past Family History Father Family Medical History: CVA/TIA, Diabetes Mellitus, Hypertension, Liver Disease, Renal Disease, Thyroid Disorder Mother Family Medical History: No Reported History Medications and Allergies Home Medications Medication Instructions Recorded Confirmed Type ARIPiprazole [Abilify] 15 mg PO DAILY 30 Days #30 tab 06/08/19 Rx Melatonin 5 mg PO HS PRN 30 Days #30 tablet 06/08/19 Rx Allergies Allergy/AdvReac Type Severity Reaction Status Date / Time lorazepam [From Ativan] AdvReac AGGRESSION Verified 11/15/23 19:25 Physical Exam Vitals: Vital Signs Temp Pulse Resp BP Pulse Ox 11/20/23 21:38 109 H 18 127/68 98 11/20/23 18:50 115 H 115/63 11/20/23 18:02 110 H 129/79 11/20/23 14:07 130/72 11/20/23 08:46 132 H 142/71 11/20/23 06:00 98.1 F 147 H 18 141/99 99 Results CBC & Chem 7: 11/16/23 07:37 11/16/23 07:37
--- NOTE | 2023-11-21 11:44 | P.PN ---
Subjective Progress Note Date: 11/21/23 Principal diagnosis: IMPRESSIONS: bipolar disorder, sandrita with psychotic features nicotine dependance noncompliance with medication Patient Name: Indy Harrington Date of : 77 Patient Status: Inpatient Attending Provider: Santino Rapp Date: 11/21/23 Initialization Date: 11/19/23 08:45 Interval History: the patient was seen chart was reviewed and case discussed with the nursing staff The patient was wandering in the hallway Patient was doing different dancing moves and appears to be preoccupied When approached for a discussion patient continues to show her name on the chalkboard and just continues to repeat herself over and over She exhibits marked perseveration and was difficult to be redirected into any other discussion Patient is talked remains nonsensical circumstantial and tangential Patient continues to be very bizarre, and unable to redirect. staff is reported that the patientPatient continues refusing meds. Is sometimes requiring PRN injections for agitation and intrusive behaviors. Court hearing is scheduled for 11/23. MENTAL STATUS EXAM: General Appearance: Patient appears to be older than stated age is alert, Uncooperative due to psychosis. Patient appears to have very poor hygiene and grooming. Disheveled, very dirty, and matted long hair. Behavior: Patient is walking around without any agitated behavior. Speech: Patient's speech is fluent and nonpressured, speaking in circles, and nonsensical. Mood/Affect: Patient reports their mood is "good", affect is congruent and constricted. Suicidality/Homicidality: denies Perceptions: disorganized and bizarre Though content There is evidence of delusional thought content and thought process is circumstantial and disorganized., patient is responding to internal stimuli, Memory and concentration: unable to assess Judgment and insight: poor/impulsive IMPRESSIONS: bipolar disorder, sandrita with psychotic features nicotine dependance noncompliance with medication PLAN: -Patient is admitted under involuntary status to [facility] for stabilization of psychiatric symptoms and safety. Patient has not signed adult voluntary form or medication consent and is placed in patient's chart. Court hearing 11/23 -Medications : Invega 3mg BID for psychosis, Trazodone 100mg prn qhs for sleep. patient is currently refusing PO meds. -Ativan and Haldol PRN for agitation/aggression -NRT -nicotine patch - on board for discharge planning. Encourage patient to participate in groups to work on coping skills. Will await court date on 11/23. Patient did not defer with personal injury attorney. encouraged to parts been on the [employer]ter activities Jeffrey Lamas M.D. Doing different dancing moves She appears to be preoccupied with self Objective - Vital Signs Vital signs: Vital Signs Temp 98.1 F 11/20/23 06:00 Pulse 109 H 11/20/23 21:38 Resp 18 11/20/23 21:38 BP 127/68 11/20/23 21:38 Pulse Ox 98 11/20/23 21:38 FiO2 - Labs CBC & Chem 7: 11/16/23 07:37 11/16/23 07:37
--- NOTE | 2023-11-22 10:29 | P.PN ---
Progress Note - Text Progress Note Date: 11/22/23 Interval History: Patient was seen in the [place], and was agreeable to speak with proposal manager writer. Patient states that she is "pissed off". She states that she wants to call 911, because she is being held hostage. She states that she is done playing games. She then states that she gave , and that she is "[place]". She states that she is no longer a patient, and she is done with her voice being shut off, that she is leaving with dignity and respect. She claims that she smelt sex trafficking creeping to her door during the night. Patient is religiously preoccupied. Patient continues to respond to internal stimuli, picking at things in the air that are not there, speaking in circles, and talking nonsensical. Patient continues to be very bizarre, and unable to redirect. Patient continues refusing meds. Is sometimes requiring PRN injections for agitation and intrusive behaviors. Court hearing is scheduled for 11/23 MENTAL STATUS EXAM: General Appearance: Patient appears to be older than stated age is alert, Uncooperative due to psychosis. Patient appears to have very poor hygiene and grooming. Disheveled, very dirty, and matted long hair. Behavior: Patient is seated without any agitated behavior. Making bizarre hand gestures, intrusive Speech: Patient's speech is fluent and nonpressured, speaking in circles, and nonsensical. Mood/Affect: Patient reports their mood is "amazing", affect is congruent and constricted. Suicidality/Homicidality: denies Perceptions: disorganized and bizarre Though content There is evidence of delusional thought content and thought process is circumstantial and disorganized., patient is responding to internal stimuli, making bizarre hand gestures and noises. Memory and concentration: unable to assess Judgment and insight: poor/impulsive IMPRESSIONS: bipolar disorder, sandrita with psychotic features nicotine dependance noncompliance with medication PLAN: -Patient is admitted under involuntary status to MHU for stabilization of psychiatric symptoms and safety. Patient has not signed adult voluntary form or medication consent and is placed in patient's chart. Court hearing 11/23 -Medications : Invega 3mg BID for psychosis, Trazodone 100mg prn qhs for sleep. patient is currently refusing PO meds. -Ativan and Haldol PRN for agitation/aggression -NRT -nicotine patch -SW on board for discharge planning. Encourage patient to participate in groups to work on coping skills. Will await court date on 11/23. Patient did not defer with commercial attorney.
[2023-11-22 12:54] LABS: HCT 37.3 % (34.0-46.0); MCH 28.2 pg (25.0-35.0); MCHC 32.2 g/dL (31.0-37.0); MCV 87.5 fL (80.0-100.0); Mean Platelet Volume 7.6; Platelet Count 278 k/uL (150-450); RBC 4.26 m/uL (3.80-5.40); RDW 14.4 % (11.5-15.5); WBC 10.1 k/uL (3.8-10.6)
--- NOTE | 2023-11-23 11:08 | P.PN ---
Progress Note - Text Progress Note Date: 11/23/23 Interval History: Patient was seen in the [place], and was not agreeable to speak with poem writer. Deborah briseno continues to be isolating on the unit, sitting at the nurses desk, not directable. She claims that "I am not talking to young people". She told poem writer to leave her alone proceeded to walk away. Continues to have a disheveled appearance, responding to internal stimuli. She has been receiving prn medications for aggression and agitation and being intrusive with staff and other patients. Patient was not able to answer any other further questions. MENTAL STATUS EXAM: General Appearance: Patient appears to be older than stated age is alert, Uncooperative due to psychosis. Patient appears to have very poor hygiene and grooming. Disheveled, very dirty, and matted long hair. Behavior: Patient is Making bizarre hand gestures, intrusive, agitated Speech: Patient's speech is fluent and nonpressured, speaking nonsensical. Mood/Affect: P unable to obtain Suicidality/Homicidality: Unable to obtain Perceptions: disorganized and bizarre Though content There is evidence of delusional thought content and thought process is circumstantial and disorganized. demanding. Memory and concentration: unable to assess Judgment and insight: poor/impulsive IMPRESSIONS: bipolar disorder, sandrita with psychotic features nicotine dependance noncompliance with medication PLAN: -Patient is admitted under involuntary status to MHU for stabilization of psychiatric symptoms and safety. Patient has not signed adult voluntary form or medication consent and is placed in patient's chart. Court hearing 11/23 -Medications : Invega 3 mg BID for psychosis, Trazodone 100mg prn qhs for sleep. patient is currently refusing PO meds. -Ativan and Haldol PRN for agitation/aggression -NRT -nicotine patch -SW on board for discharge planning. Encourage patient to participate in groups to work on coping skills. Will await court date on 11/23. Patient did not defer with real estate associate attorney.
[2023-11-24] MEDS ORDERED: flUPHENAZine 2.5 MG/ML (MDV) 10 ML VIAL IM PRN (11:23)
--- NOTE | 2023-11-24 11:36 | P.PN ---
Progress Note - Text Progress Note Date: 11/24/23 Interval History: Patient was seen in her room, and was agreeable to speak with singer songwriter at the [facility]. Patient states she is "fucking traumatized" from being here. She is making illogical statements as in, "I started in [facility]," and "my grand mother was the first whistling nurse", and "I am [place]". When asked if she was homicidal or suicidal, she stated she used to be, when she was forced to take medication. She has been receiving prn medications for aggression and agitation and being intrusive with staff and other patients. Patient did state that she thinks this is the best psychiatric hospital she has been in. Patient's hygiene is improving mildly. MENTAL STATUS EXAM: General Appearance: Patient appears to be older than stated age is alert, Uncooperative due to psychosis. Patient appears to have very poor hygiene and grooming. Disheveled, very dirty, and matted long hair. Behavior: Patient is Making bizarre hand gestures, intrusive, agitated Speech: Patient's speech is fluent and nonpressured, speaking nonsensical. Mood/Affect: P unable to obtain Suicidality/Homicidality: States she used to be. Perceptions: disorganized and bizarre Though content There is evidence of delusional thought content and thought process is circumstantial and disorganized. demanding. Memory and concentration: unable to assess Judgment and insight: poor/impulsive IMPRESSIONS: bipolar disorder, sandrita with psychotic features nicotine dependance noncompliance with medication PLAN: -Patient is admitted under involuntary status to MHU for stabilization of psychiatric symptoms and safety. Patient has not signed adult voluntary form or medication consent and is placed in patient's chart. Full court order, 11/23 -Medications : Invega 3 mg BID for psychosis, Trazodone 100mg prn qhs for sleep. If patient refuses PO Invega, give Prolixin 5mg IM, as patient was placed on a court order on 11/23 -Ativan and Haldol PRN for agitation/aggression -NRT -nicotine patch -SW on board for discharge planning. Encourage patient to participate in groups to work on coping skills.Patient is on a full order, beginning 11/23
[2023-11-24] MEDS: PALIPERIDONE 3 MG TAB.ER.24 PO SCH (21:26)
--- NOTE | 2023-11-25 11:01 | P.PN ---
Progress Note - Text Progress Note Date: 11/25/23 Interval History: Patient was seen in in the halls and agreeable to speak with the song writer in the [place]. Patient's hygiene is mildly improving, she showered today. Patient is having a flight of ideas, disorganized thought process, illogical thinking. She rambles on about trafficking in [place], [place], and around the world. She states she is here and her heart, and she will be leaving with dignity. Patient has a lot of belongings in the [place] outside of her room. She states that she has her stuff ready for when she is leaving. Patient is going to groups. Patient is mildly improving with medication. She does seem to have a short attention span. Patient claims that she is sleeping well. Patient states that her appetite is good and she eats her meals. Denies auditory or visual hallucinations. Denies suicidal or homicidal ideations. States she is only here to love. MENTAL STATUS EXAM: General Appearance: Patient appears to be older than stated age is alert, psychotic, responding to internal stimuli. Patient appears to have very poor hygiene and grooming. Disheveled, very dirty, and matted long hair. Behavior: Patient is still slightly responding to internal stimuli. Speech: Patient's speech is fluent and nonpressured, tangential Mood/Affect: Patient claims that she is doing well, affect is bizarre, making several statements that are bizarre in nature. Suicidality/Homicidality: Denies Perceptions: disorganized and illogical, improving mildly Though content There is evidence of delusional thought content and thought process is circumstantial and disorganized. improving mildly Memory and concentration: unable to assess Judgment and insight: poor/impulsive IMPRESSIONS: bipolar disorder, sandrita with psychotic features nicotine dependance noncompliance with medication PLAN: -Patient is admitted under involuntary status to [facility]HU for stabilization of psychiatric symptoms and safety. Patient has not signed adult voluntary form or medication consent and is placed in patient's chart. Full court order, 11/23 -Medications : Increase Invega 6 mg BID for psychosis, Trazodone 100mg prn qhs for sleep. If patient refuses PO Invega, give Prolixin 5mg IM, as patient was placed on a court order on 11/23, added lithobid 450 mg qhs for mood stabilization. -Ativan and Haldol PRN for agitation/aggression -NRT -nicotine patch -SW on board for discharge planning. Encourage patient to participate in groups to work on coping skills. Patient is on a full order from 11/23.
[2023-11-25] MEDS: PALIPERIDONE 6 MG TAB.ER.24 PO SCH (21:39)
[2023-11-25] MEDS: LITHIUM CARBONATE ER 450 MG TABLET.ER PO SCH (21:39)
--- NOTE | 2023-11-26 11:27 | P.PN ---
Progress Note - Text Progress Note Date: 11/26/23 Interval History: Patient was seen in in the halls and agreeable to speak with the comic writer at her bedside. Patient continues to make bizarre statements, and stated this is her private hell, and that Dr Vilchis put her in here, and told her her breast milk was not good enough to give her babies, and that she is not pure, and then her hair fell out. She stated that God took her off her medication in 2009 before she went on her mission trips. Patient is going to groups. She stated that she does not belong here, that she was only dancing around her tree at her home in [place], and then she came here. Patient is mildly improving with medication. She does seem to have a short attention span. Patient claims that she is sleeping well. Patient states that her appetite is good and she eats her meals. Denies auditory or visual hallucinations. Denies suicidal or homicidal ideations. States she is only here to love. MENTAL STATUS EXAM: General Appearance: Patient appears to be older than stated age is alert, psychotic, responding to internal stimuli. Patient appears to have improving h ygiene and grooming. Behavior: Patient is still slightly responding to internal stimuli. Speech: Patient's speech is fluent and nonpressured, tangential, loose associations Mood/Affect: Patient claims that she is doing well, affect is bizarre, making several statements that are bizarre in nature. Suicidality/Homicidality: Denies Perceptions: disorganized and illogical, improving mildly Though content There is evidence of delusional thought content and thought process is circumstantial and disorganized. improving mildly Memory and concentration: unable to assess Judgment and insight: poor/impulsive IMPRESSIONS: bipolar disorder, sandrita with psychotic features nicotine dependance noncompliance with medication PLAN: -Patient is admitted under involuntary status to MHU for stabilization of psychiatric symptoms and safety. Patient has not signed adult voluntary form or medication consent and is placed in patient's chart. Full court order, 11/23 -Medications : Invega 6 mg BID for psychosis, Trazodone 100mg prn qhs for sleep. If patient refuses PO Invega, give Prolixin 5mg IM, as patient was placed on a court order on 11/23, lithobid 450 mg qhs for mood stabilization. -ordered entered to check for cheeking of medications. -Ativan and Haldol PRN for agitation/aggression -NRT -nicotine patch -SW on board for discharge planning. Encourage patient to participate in groups to work on coping skills. Patient is on a full order from 11/23.
[2023-11-26 14:01] VITALS: BMI 32.1
--- NOTE | 2023-11-27 10:30 | P.PN ---
Progress Note - Text Progress Note Date: 11/27/23 Interval history: Patient was seen wandering the hallways and was directable and agreeable to s peak with va underwriter. Patient continues to be tangential, bizarre, disorganized thought process. She is improving mildly compared to yesterday. She continues to be focused on "God" and claims that she is still hearing him talk to her however now is more "positive things". She appears to be less agitated. She believes that she is "incarcerated" on the unit and wants to be with her . At this time patient denies any suicidal or homicidal ideations intent or plan. Denies any visual hallucinations. Patient denies any side effects from the medications and has been compliant with meds. Mental status exam: General Appearance: Patient appears to be wearing a towel on her head, stated age is alert, directable, and ems to be cooperative. Behavior: No agitated behavior. Patient is calm and directable, less impulsive and less bizarre today Speech: Patient's speech is fluent and nonpressured. Rambles. Mood/Affect: Mood is improving mildly, affect is congruent and constricted. Suicidality/Homicidality: Patient denies having any suicidal or homicidal ideation intent or plan. Perceptions: Patient admits to auditory hallucinations. Denies any visual hallucinations. Though content/process: Illogical, loose associations, rambling. Delusional content Memory and concentration: AOX3, grossly intact for the purposes of this session Judgment and insight: Poor, improving mildly Assessment/Plan: Continue with current diagnosis. Patient continues to meet criteria for inpatient psychiatric admission for symptom stabilization and safety. Patient will be maintained on current psychotropic medication regimen. Monitor for medication compliance and for any psychotropic medication side effects. Will continue to monitor ongoing response to treatment. Encouraged participation in milieu.
--- NOTE | 2023-11-28 11:38 | P.PN ---
Progress Note - Text Progress Note Date: 11/28/23 Interval history: Patient was seen wandering the hallways and was directable and agreeable to s peak with job specification writer. Patient appears to be less tangential today, mildly more organized in her thought process. She continues to be religiously preoccupied, claiming that she is "talking to God" however is not claiming that she is getting specific messages to do anything. She claims that she is encountering very negative people on the unit and also staff members. She appears to have mildly improving insight and states that "I guess I need to take these medications because I am on a court order by no medications can help me". Patient continues to be tangential, bizarre, disorganized thought process. She is improving mildly compared to yesterday. At this time patient denies any suicidal or homicidal ideations intent or plan. Denies any visual hallucinations. Patient denies any side effects from the medications and has been compliant with meds. Mental status exam: General Appearance: Patient appears to be improving in hygiene and grooming, stated age is alert, directable, and ems to be cooperative. Behavior: No agitated behavior. Patient is calm and directable, less impulsive and less bizarre today. Not responding to internal stimuli Speech: Patient's speech is fluent and nonpressured. Rambles. Improving mildly Mood/Affect: Mood is improving mildly, affect is congruent and constricted. Improving mildly Suicidality/Homicidality: Patient denies having any suicidal or homicidal ideation intent or plan. Perceptions: Patient admits to auditory hallucinations. Denies any visual hallucinations. Though content/process: Illogical, loose associations, rambling. Delusional content Memory and concentration: AOX3, grossly intact for the purposes of this session Judgment and insight: Poor, improving mildly Assessment/Plan: Continue with current diagnosis. Patient continues to meet criteria for inpatient psychiatric admission for symptom stabilization and safety. Patient will be maintained on current psychotropic medication regimen. Will get a lithium level Wednesday morning, will consider switching onto first generation antipsychotic if patient continues to not improve. Monitor for medication compliance and for any psychotropic medication side effects. Will continue to monitor ongoing response to treatment. Encouraged participation in milieu.
--- NOTE | 2023-11-29 11:10 | P.PN ---
Progress Note - Text Progress Note Date: 11/29/23 Interval History: Patient was seen in in the halls and agreeable to speak with the racebook writer in the hallway. Patient pointed to the painting on the wall, and stated "this is my life story. the lantern is my grandmother, the wind in the trees is me". Patient does seem a little less tangential today. She does state it is traumatizing to be in here, she feels like she is in penitentiary. She wants to take a bath. Patient is mildly improving with medication. She does seem to have a short attention span. Patient claims that she is sleeping well. Patient states that her appetite is good and she eats her meals. Denies auditory or visual hallucinations. Denies suicidal or homicidal ideations. States she is only here to love. MENTAL STATUS EXAM: General Appearance: Patient appears to be older than stated age is alert, psychotic, responding to internal stimuli. Patient appears to have improving hygiene and grooming. Behavior: Patient is still slightly responding to internal stimuli. Speech: Patient's speech is fluent and nonpressured, tangential, loose associations Mood/Affect: Patient claims that she is doing well, affect is bizarre, making several statements that are bizarre in nature.mildly improving Suicidality/Homicidality: Denies Perceptions: disorganized and illogical, improving mildly Though content There is evidence of delusional thought content and thought process is circumstantial and disorganized. improving mildly Memory and concentration: unable to assess Judgment and insight: poor/impulsive IMPRESSIONS: bipolar disorder, sandrita with psychotic features nicotine dependance noncompliance with medication PLAN: -Patient is admitted under involuntary status to [facility]HU for stabilization of psychiatric symptoms and safety. Patient has not signed adult voluntary form or medication consent and is placed in patient's chart. Full court order, 11/23 -Medications : d/c Invega due to ineffectiveness, add Prolixin 5 mg BID for psychosis, Trazodone 100mg prn qhs for sleep. If patient refuses PO prolixin, give Prolixin 5mg IM, as patient was placed on a court order on 11/23, lithobid 450 mg qhs for mood stabilization. -[place] level 5/7 in the am. -ordered entered to check for cheeking of medications. -Ativan and Haldol PRN for agitation/aggression -NRT -nicotine patch -SW on board for discharge planning. Encourage patient to participate in groups to work on coping skills. Patient is on a full order from 11/23.
--- NOTE | 2023-11-30 11:20 | P.PN ---
Progress Note - Text Progress Note Date: 11/30/23 Interval History: Patient was seen in in the halls and agreeable to speak with the song writer in the hallway. Patient states that she is tired today. She claims to have slept all right last night, however, she just wants to go home and sleep in her own bed, and take a bath. She states that she needs to be connected with Dandre Garcia, because he is like a brother to her, and her counselor. When asked if she hears voices, she states that she hears God. Patient is mildly improving with medication. She does seem to have a short attention span. Patient states that her appetite is good and she eats her meals. Denies auditory or visual hallucinations. Denies suicidal or homicidal ideations. MENTAL STATUS EXAM: General Appearance: Patient appears to be older than stated age is alert, psychotic, responding to internal stimuli. Patient appears to have improving hygiene and grooming. Behavior: Patient is still making bizarre statements about the painting on the wall being her life. Speech: Patient's speech is fluent and nonpressured, tangential, loose associations Mood/Affect: Patient claims that she is doing well, affect is bizarre, making several statements that are bizarre in nature.mildly improving Suicidality/Homicidality: Denies Perceptions: disorganized and illogical, improving mildly Though content There is evidence of delusional thought content and thought process is circumstantial and disorganized. improving mildly Memory and concentration: unable to assess Judgment and insight: poor/impulsive, improving mildly IMPRESSIONS: Schizoaffective disorder, bipolar type nicotine dependance noncompliance with medication PLAN: -Patient is admitted under involuntary status to [facility] for stabilization of psychiatric symptoms and safety. Patient has not signed adult voluntary form or medication consent and is placed in patient's chart. Full court order, 11/23 -Medications : Increase Prolixin 7.5 mg BID for psychosis, will need to transition patient onto long-acting injection prior to discharge to help ensure compliance. Trazodone 100mg prn qhs for sleep. If patient refuses PO prolixin, give Prolixin 5mg IM, as patient was placed on a court order on 11/23, lithobid 450 mg qhs for mood stabilization. -Check [place] level 11/29 -ordered entered to check for cheeking of medications. -Ativan and Haldol PRN for agitation/aggression -NRT -nicotine patch -SW on board for discharge planning. Encourage patient to participate in groups to work on coping skills. Patient is on a full order from 11/23. Will discharge when patient more psychiatrically stable, patient will need to be transitioned onto long-acting injection prior to discharge.
--- NOTE | 2023-12-01 10:29 | P.PN ---
Progress Note - Text Progress Note Date: 12/01/23 Interval History: Patient was seen in in the halls and agreeable to speak with the radio script writer in the hallway. Patient claims that she feels high. She states she usually does not take medication, but she is just taking them to "get out of here". Patient will need to be transitioned onto a GOULD prior to discharge to ensure compliance with the court order. Patient states that she is frustrated because the phone does not work for her, and she is denied the right to talk to her people. Patient educated on how to use the phone, she stated that she does dial 9, then 1 and the area code and phone number, but it only calls 911, it only works if someone else dials it for her. Patient is mildly improving with her delusions, due to medications. When asked if she hears voices, she states that she hears God. She does seem to have a short attention span. Patient states that her appetite is good and she eats her meals. Denies auditory or visual hallucinations. Denies suicidal or homicidal ideations. MENTAL STATUS EXAM: General Appearance: Patient appears to be older than stated age is alert, ps ychotic, responding to internal stimuli. Patient appears to have improving hygiene and grooming. Behavior: Patient is still making bizarre statements about the painting on the wall being her life. Speech: Patient's speech is fluent and nonpressured, tangential, loose associations Mood/Affect: Patient claims that she is ok, affect is concrete, mildly improving Suicidality/Homicidality: Denies Perceptions: disorganized and illogical, improving mildly Though content There is evidence of delusional thought content and thought process is circumstantial and disorganized. improving mildly Memory and concentration: unable to assess Judgment and insight: poor/impulsive, improving mildly IMPRESSIONS: Schizoaffective disorder, bipolar type nicotine dependance noncompliance with medication PLAN: -Patient is admitted under involuntary status to [facility] for stabilization of psychiatric symptoms and safety. Patient has not signed adult voluntary form or medication consent and is placed in patient's chart. Full court order, 11/23 -Medications : Prolixin 7.5 mg BID for psychosis, will need to transition patient onto long-acting injection prior to discharge to help ensure compliance. Trazodone 100mg prn qhs for sleep. If patient refuses PO prolixin, give Prolixin 5mg IM, as patient was placed on a court order on 11/23, d/c lithobid add lithium carbonate 300mg bid for mood stabilization. -[place] level - 0.3 -ordered entered to check for cheeking of medications. -Ativan and Haldol PRN for agitation/aggression -NRT -nicotine patch -SW on board for discharge planning. Encourage patient to participate in groups to work on coping skills. Patient is on a full order from 11/23. Will discharge when patient more psychiatrically stable, patient will need to be transitioned onto long-acting injection prior to discharge.
[2023-12-01] MEDS: LITHIUM CARBONATE 300 MG CAP PO SCH (20:55)
--- NOTE | 2023-12-02 10:55 | P.PN ---
Progress Note - Text Progress Note Date: 12/02/23 Interval History: Patient was seen in her room and agreeable to speak with the board writer at the bed side. Patient states that she is tired today. Plane Tableman will adjust medication schedule to put the heavier doses qhs. Patient states she just wants to go home. Plane Tableman informed patient that she will have to transition onto a GOULD prior to discharge to ensure compliance with the court order, patient hesitantly agreeable.Patient is improving with her delusions, due to medications. When asked if she hears voices, she states that she hears God. Patient is focused on discharge. Patient states that her appetite is good and she eats her meals. Patient does claim to be sleeping well at night, and she attends most groups. Denies auditory or visual hallucinations. Denies suicidal or homicidal ideations. MENTAL STATUS EXAM: General Appearance: Patient appears to be older than stated age is alert. P atient appears to have improving hygiene and grooming. Behavior: Patient is laying in bed, upset about not being discharged yet Speech: Patient's speech is fluent and nonpressured, tangential, loose associations, improving Mood/Affect: Patient claims that she is ok, affect is concrete, mildly improving Suicidality/Homicidality: Denies Perceptions: disorganized and illogical, improving mildly Though content There is evidence of delusional thought content and thought process is circumstantial and disorganized. improving mildly Memory and concentration: unable to assess Judgment and insight: poor/impulsive, improving mildly IMPRESSIONS: Schizoaffective disorder, bipolar type nicotine dependance noncompliance with medication PLAN: -Patient is admitted under involuntary status to [facility] for stabilization of psychiatric symptoms and safety. Patient has not signed adult voluntary form or medication consent and is placed in patient's chart. Full court order, 11/23 -Medications : change Prolixin 5mg qam and 10mg qhs for psychosis due to sedation during the day, will need to transition patient onto long-acting injection prior to discharge to help ensure compliance will give tomorrow morning. Trazodone 100mg prn qhs for sleep. If patient refuses PO prolixin, give Prolixin 5mg IM, as patient was placed on a court order on 11/23, lithium carbonate 300mg bid for mood stabilization. add Cogentin 1mg qhs for EPS symptoms. -ordered entered to check for cheeking of medications. -Ativan and Haldol PRN for agitation/aggression -NRT -nicotine patch -SW on board for discharge planning. Encourage patient to participate in groups to work on coping skills. Patient is on a full order from 11/23. Will discharge when patient more psychiatrically stable, patient will need to be transitioned onto long-acting injection prior to discharge. Will give GOUDL wednesday, and taper down PO prolixin over the weekend.
[2023-12-02] MEDS: BENZTROPINE MESYLATE 1 MG TAB PO SCH (20:53)
[2023-12-03] MEDS: fluPHENAZine DECANOATE 25 MG/ML 5ML MDV IM SCH (10:38)
--- NOTE | 2023-12-03 10:59 | P.PN ---
Progress Note - Text Progress Note Date: 12/03/23 Interval History: Patient was seen in her room and agreeable to speak with the typewriter mechanic at the bed side. Patient states she wants to go home. Landscape Technician explained to the patient that she will need to receive her GOULD today, and get tapered off the PO Prolixin during the weekend. Patient agreeable. Patient is improving with her delusions, due to medications. Patient is no longer endorsing auditory hallucinations. Patient is focused on discharge. Patient is refusing Cogentin, typewriter mechanic explained to patient the benefits of this medication, patient still refusing. appears to be less disorganized today and more appropriate and calmer. Patient states that her appetite is good and she eats her meals. Patient does claim to be sleeping well at night, and she attends most groups. Denies auditory or visual hallucinations. Denies suicidal or homicidal ideations. MENTAL STATUS EXAM: General Appearance: Patient appears to be older than stated age is alert. Patient appears to have improving hygiene and grooming. Behavior: Patient is standing in her room, cooperative Speech: Patient's speech is fluent and nonpressured, improving Mood/Affect: Patient claims that she is ok, affect is concrete, mildly improving Suicidality/Homicidality: Denies Perceptions: improving mildly Though content There is no evidence of delusional thought content and thought process, more organized, no paranoia. improving mildly Memory and concentration: unable to assess Judgment and insight: poor, improving mildly IMPRESSIONS: Schizoaffective disorder, bipolar type nicotine dependance noncompliance with medication PLAN: -Patient is admitted under involuntary status to [facility] for stabilization of psychiatric symptoms and safety. Patient has not signed adult voluntary form or medication consent and is placed in patient's chart. Full court order, 11/23 -Medications : Prolixin PO taper down over the weekend ordered, will give Prolixin D 37.5mg [id number] today, 12/02, next dose 12/16 Trazodone 100mg prn qhs for sleep. If patient refuses PO prolixin, give Prolixin 5mg IM, as patient was placed on a court order on 11/23, lithium carbonate 300mg bid for mood stabilization. add Cogentin 1mg qhs for EPS symptoms. -ordered entered to check for cheeking of medications. -Ativan and Haldol PRN for agitation/aggression -check lithium level wednesday. -NRT -nicotine patch -SW on board for discharge planning. Encourage patient to participate in groups to work on coping skills. Patient is on a full order from 11/23. Will discharge when patient more psychiatrically stable, patient will need to be transitioned onto long-acting injection prior to discharge. hopeful for discharge wednesday. GOULD given 12/02, next dose 12/16, and taper down PO prolixin over the weekend.
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
--- NOTE | 2023-12-05 12:26 | P.PN ---
Subjective Progress Note Date: 12/05/23 Principal diagnosis: IMPRESSIONS: bipolar disorder, sandrita with psychotic features nicotine dependance noncompliance with medication Patient Name: Indy Harrington Date of : 77 Patient Status: Inpatient Attending Provider: Santino Rapp Date: 12/05/23 Initialization Date: 11/19/23 08:45 Interval History: Subjective data: patient was seen chart was reviewed and case discussed with nursing staff Patient was laying in her bed comfortably and did not appear to be in any acute distress When asked about her problems and her current health issues she reports that that is what'they say'and that she does not have any issues or problems She does not believe that she has any illness or problems and does not need to take any medications She stated that she is aware that she is on involuntary medications staff is reported that the patientPatient continues refusing meds. Is sometimes requiring PRN injections for agitation and intrusive behaviors. Patient in fact was here during the last time that I was here for coverage 2 weeks ago MENTAL STATUS EXAM: General Appearance: Patient appears to be older than stated age is alert, Uncooperative due to psychosis. Patient appears to have very poor hygiene and grooming. Disheveled, very dirty, and matted long hair. Behavior: Patient is walking around without any agitated behavior. Speech: Patient's speech is fluent and nonpressured, speaking in circles, and nonsensical. Mood/Affect: Patient reports their mood is "good", affect is congruent and con stricted. Suicidality/Homicidality: denies Perceptions: disorganized and bizarre Though content There is evidence of delusional thought content and thought process is circumstantial and disorganized., patient is responding to internal stimuli, Memory and concentration: unable to assess Judgment and insight: poor/impulsive IMPRESSIONS: bipolar disorder, sandrita with psychotic features nicotine dependance noncompliance with medication PLAN: Agree with the current treatment plan No major change noted in her general demeanor and attitude and continues to be in denial -Patient is admitted under involuntary status to [facility] for stabilization of psychiatric symptoms and safety. Patient has not signed adult voluntary form or medication consent and is placed in patient's chart. Full court order, 11/23 -Medications : Prolixin PO taper down over the weekend ordered, then Prolixin D 37.5mg [id number] today, 12/02, next dose 12/16 Trazodone 100mg prn qhs for sleep. If patient refuses PO prolixin, give Prolixin 5mg IM, as patient was placed on a court order on 11/23, lithium carbonate 300mg bid for mood stabilization. add Cogentin 1mg qhs for EPS symptoms. -. -Ativan and Haldol PRN for agitation/aggression -NRT -nicotine patch -SW on board for discharge planning. Encourage patient to participate in groups to work on coping skills. Patient is on a full order from 11/23. Will discharge when patient more psychiatrically stable, patient will need to be transitioned onto long-acting injection prior to discharge. hopeful for discharge wednesday. GOULD given 12/02, next dose 12/16, and taper down PO prolixin over the weekend. Jeffrey Lamas M.D. Doing different dancing moves She appears to be preoccupied with self Objective - Vital Signs Vital signs: Vital Signs Temp 97.9 F 12/04/23 06:00 Pulse 86 12/05/23 08:40 Resp 18 12/04/23 06:00 BP 131/76 12/05/23 08:40 Pulse Ox 99 12/04/23 06:00 FiO2 - Labs CBC & Chem 7: 11/22/23 12:17 11/16/23 07:37
[2023-12-06 06:21] VITALS: BP 114/65; PULSE 79; RESP 16; TEMP 98
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
== END 2023-12-06 17:05 | disposition home or self-care (01) | DRG 750 ==
LOC: EC 19:12 → 3MHU 11-16 02:30
PROVIDERS: ADMIT Psychiatry & Neurology Psychiatry; ATTEND Psychiatry & Neurology Psychiatry
DX: F25.0 Schizoaffective disorder, bipolar type (principal); F17.200 Nicotine dependence, unspecified, uncomplicated; F30.2 Manic episode, severe with psychotic symptoms; Z79.899 Other long term (current) drug therapy; Z91.148 Patient's other noncompliance with medication regimen for other reason; Z11.52 Encounter for screening for COVID-19
CPT/HCPCS: 80053; 80061; 80178; 80306; 81001; 81025; 82075; 82248; 83036; 84443; 85025; 85027; 87635; 99285

== ENCOUNTER 2024-11-07 07:44 | Inpatient (IN) | payer MEDICAID, OTHER ==
--- NOTE | 2024-11-07 08:55 | ED ---
Psych HPI - General Source: patient, RN notes reviewed Mode of arrival: ambulatory Limitations: no limitations <Maxime Dasilva - Last Filed: 11/07/24 12:44> <Gabino Quan - Last Filed: 11/07/24 12:54> - General Chief Complaint: Psychiatric Symptoms Stated Complaint: Mental health Time Seen by Provider: 11/07/24 07:47 - History of Present Illness Initial Comments: 49-year-old female presents emergency department with chief complaint of needing psychiatric evaluation. Patient has underlying history of schizophrenia she reports that she is on Invega injection along with Wellbutrin. Patient others states that she has been having worsening delusional thoughts and erratic behavior. Patient denies any suicidal or homicidal ideation she states she has been going to her appointments as directed reportedly had an emergency meeting yesterday. (Maxime Dasilva) - Related Data Home Medications Medication Instructions Recorded Confirmed Natural Melatonin(Unknown Dose) 1 tab PO HS PRN 11/07/24 11/07/24 Paliperidone Palmitate [Invega 117 mg IM Q28D 11/07/24 11/07/24 [place]] buPROPion XL [Wellbutrin XL] 300 mg PO DAILY 11/07/24 11/07/24 Allergies Allergy/AdvReac Type Severity Reaction Status Date / Time cariprazine [From Vraylar] AdvReac weight gain Verified 11/07/24 10:16 codeine AdvReac Hyper Verified 11/07/24 10:16 haloperidol [From Haldol] AdvReac agitation Verified 11/07/24 10:16 lorazepam [From Ativan] AdvReac Agression Verified 11/07/24 10:16 olanzapine [From Zyprexa] AdvReac weight gain Verified 11/07/24 10:16 paroxetine [From Paxil] AdvReac weight gain Verified 11/07/24 10:16 Review of Systems ROS Other: All systems not noted in ROS Statement are negative. <Maxime Dasilva - Last Filed: 11/07/24 12:44> ROS Other: All systems not noted in ROS Statement are negative. <Gabino Quan - Last Filed: 11/07/24 12:54> ROS Statement: Those systems with pertinent positive or pertinent negative responses have been documented in the HPI. Past Medical History Past Medical History: No Reported History Additional Past Medical History / Comment(s): Bipolar Disorder History of Any Multi-Drug Resistant Organisms: None Reported Past Surgical History: Section, Hernia Repair Additional Past Surgical History / Comment(s): oral surgery Past Anesthesia/Blood Transfusion Reactions: No Reported Reaction Past Psychological History: Bipolar Past Alcohol Use History: Abuse Past Drug Use History: Marijuana, Opiates - Past Family History Father Family Medical History: CVA/TIA, Diabetes Mellitus, Hypertension, Liver Disease, Renal Disease, Thyroid Disorder Mother Family Medical History: No Reported History <Maxime Dasilva - Last Filed: 11/07/24 12:44> General Exam Limitations: no limitations General appearance: alert, in no apparent distress Head exam: Present: atraumatic, normocephalic, normal inspection Eye exam: Present: normal appearance, PERRL, EOMI. Absent: scleral icterus, conjunctival injection, periorbital swelling ENT exam: Present: normal exam, normal oropharynx, mucous membranes moist Neck exam: Present: normal inspection, full ROM. Absent: tenderness, meningismus, lymphadenopathy Respiratory exam: Present: normal lung sounds bilaterally. Absent: respiratory distress, wheezes, rales, rhonchi, stridor Cardiovascular Exam: Present: regular rate, normal rhythm, normal heart sounds. Absent: systolic murmur, diastolic murmur, rubs, gallop, clicks GI/Abdominal exam: Present: soft, normal bowel sounds. Absent: distended, tenderness, guarding, rebound, rigid Neurological exam: Present: alert, oriented X3, CN II-XII intact, reflexes normal. Absent: motor sensory deficit Psychiatric exam: Present: normal affect, normal mood Skin exam: Present: warm, dry, intact, normal color. Absent: rash <Maxime Dasilva - Last Filed: 11/07/24 12:44> Course Vital Signs 11/07/24 11/07/24 07:53 09:15 Temperature 98.1 F 98.1 F Pulse Rate 80 76 Respiratory 24 200 H Rate Blood Pressure 141/101 136/92 O2 Sat by Pulse 95 98 Oximetry Medical Decision Making <Maxime Dasilva - Last Filed: 11/07/24 12:44> <Gabino Quan - Last Filed: 11/07/24 12:54> - Medical Decision Making Was pt. sent in by a medical professional or institution (Dr., PA, LEVEL VIAL INSPECTOR, urgent care, hospital, or detention...) When possible be specific @ -No Did you speak to anyone other than the patient for history (EMS, parent, family, police, friend...)? What history was obtained from this source @ -No Did you review nursing and triage notes (agree or disagree)? Why? @ -I reviewed and agree with nursing and triage notes Were old charts reviewed (outside hosp., previous admission, EMS record, old EKG, old radiological studies, urgent care reports/EKG's, detention records)? Report findings @ -No old charts were reviewed Differential Diagnosis (chest pain, altered mental status, abdominal pain women, abdominal pain men, vaginal bleeding, weakness, fever, dyspnea, syncope, headache, dizziness, GI bleed, back pain, seizure, CVA, palpatations, mental health, musculoskeletal)? @Differential Mental Health Depression, anxiety, bipolar, psychosis, schizophrenia, borderline personality, situational depression, adjustment disorder, behavioral disorder, brain tumor, malingering, substance abuse, encephalopathy, medication reaction, dementia, hypothyroidism, degenerative neurologic disorder, lupus.... This is not meant to be all-inclusive list EKG interpreted by me (3pts min.). @ -None X-rays interpreted by me (1pt min.). @ -None done CT interpreted by me (1pt min.). @ -None done U/S interpreted by me (1pt. min.). @ -None done What testing was considered but not performed or refused? (CT, X-rays, U/S, labs)? Why? @ -None What meds were considered but not given or refused? Why? @ -None Did you discuss the management of the patient with other professionals (professionals i.e. , PA, LEVEL VIAL INSPECTOR, lab, RT, psych nurse, social worker palliative care, land use planner, teacher, corporate security officer, child support case officer)? Give summary @ -[Evaluated patient recommend inpatient treatment Was smoking cessation discussed for >3mins.? @ -No Was critical care preformed (if so, how long)? @ -No Were there social determinants of health that impacted care today? How? (Homelessness, low income, unemployed, alcoholism, drug addiction, transportation, low edu. Level, literacy, decrease access to med. care, care home, rehab)? @ -No Was there de-escalation of care discussed even if they declined (Discuss DNR or withdrawal of care, Hospice)? DNR status @ -No What co-morbidities impacted this encounter? (DM, HTN, Smoking, COPD, CAD, Cancer, CVA, ARF, Chemo, Hep., AIDS, mental health diagnosis, sleep apnea, morbid obesity)? @ -None Was patient admitted / discharged? Hospital course, mention meds given and route, prescriptions, significant lab abnormalities, going to OR and other pertinent info. @ -Admitted to 3 W. Undiagnosed new problem with uncertain prognosis? @ -No Drug Therapy requiring intensive monitoring for toxicity (Heparin, Nitro, Insulin, Cardizem)? @ -No Were any procedures done? @ -No Diagnosis/symptom? @ -Schizophrenia acute psychosis Acute, or Chronic, or Acute on Chronic? @ -acute Uncomplicated (without systemic symptoms) or Complicated (systemic symptoms)? @Complicated Side effects of treatment? @ -No Exacerbation, Progression, or Severe Exacerbation? @ -No Poses a threat to life or bodily function? How? (Chest pain, [place], [place], pneumonia, PE, COPD, DKA, ARF, appy, cholecystitis, CVA, Diverticulitis, Homicidal, Suicidal, threat to staff... and all critical care pts) @ -No (Maxime Dasilva) Clinical certificate completed by myself. Patient will be admitted to inpatient psychiatry. (Gabino Quan) - Lab Data Lab Results 11/07/24 11/07/24 Range/Units 08:25 08:33 Urine Opiates Screen Not Detected (NotDetected) Ur Oxycodone Screen Not Detected (NotDetected) Urine Methadone Screen Not Detected (NotDetected) Ur Barbiturates Screen Not Detected (NotDetected) U Tricyclic Antidepress Not Detected (NotDetected) Ur Phencyclidine Scrn Not Detected (NotDetected) Ur Amphetamines Screen Not Detected (NotDetected) U Methamphetamines Scrn Not Detected (NotDetected) U Benzodiazepines Scrn Not Detected (NotDetected) Urine Cocaine Screen Not Detected (NotDetected) U Marijuana (THC) Screen Not Detected (NotDetected) SARS-CoV-2 (PCR) Not Detected (Not Detectd) Disposition Time of Disposition: 12:45 <Maxime Dasilva - Last Filed: 11/07/24 12:44> <Gabino Quan - Last Filed: 11/07/24 12:54> Clinical Impression: Schizoaffective disorder, bipolar type, Non compliance w medication regimen, Acute psychosis Disposition: TRANSFER TO PSYCH HOSP/UNIT
[2024-11-07 09:47] LABS: Amphetamine Screen,Urine Not Detected (NotDetected); Barbiturate Screen,Urine Not Detected (NotDetected); Benzodiazepines Screen,Urine Not Detected (NotDetected); Cocaine Screen,Urine Not Detected (NotDetected); Methadone Screen, Urine Not Detected (NotDetected); Opiate Screen,Urine Not Detected (NotDetected); Oxycodone Screen, Urine Not Detected (NotDetected); Phencyclidine Screen,Urine Not Detected (NotDetected); Tricyclic Antidepressant,Urine Not Detected (NotDetected); Urn Cannabinoid Scrn Not Detected (NotDetected)
[2024-11-07] MEDS ORDERED: MAGNESIUM HYDROXIDE 2,400 MG/30 ML CUP PO PRN (12:28)
[2024-11-07] MEDS ORDERED: MAG HYDROX/AL HYDROX/SIMETH 355 ML BOTTLE PO PRN (12:28)
[2024-11-08 07:33] LABS: Basophils # (A) 0.06 10*3/uL (0.00-0.10); Basophils % (A) 0.8 %; Eosinophils # (A) 0.12 10*3/uL (0.04-0.35); Eosinophils % (A) 1.6 %; HCT 36.5 % (37.2-46.3); HGB 12.4 g/dL (12.0-15.0); Lymphocytes # (A) 2.25 10*3/uL (0.90-5.00); Lymphocytes % (A) 30.9 %; MCH 29.5 pg (27.0-32.0); MCV 86.7 fL (80.0-97.0); Mean Platelet Volume 8.9 fL (9.5-12.2); Monocytes # (A) 0.66 10*3/uL (0.20-1.00); Monocytes % (A) 9.1 %; Neutrophils # (A) 4.16 10*3/uL (1.80-7.70); Neutrophils % (A) 57.1 %; Platelet Count 265 10*3/uL (140-440); RBC 4.21 10*6/uL (4.10-5.20); RDW 13.8 % (11.5-14.5); WBC 7.29 10*3/uL (4.50-10.00)
[2024-11-08 07:52] LABS: ALT 34 U/L (4-34); AST 30 U/L (14-36); African American GFR (CKD) 85 (>60 ml/min/1.73 sqM); Albumin 4.3 g/dL (3.5-5.0); Alkaline Phosphatase 65 U/L (38-126); Anion Gap 7 mmol/L; Blood Urea Nitrogen 11 mg/dL (7-17); Calcium 9.7 mg/dL (8.4-10.2); Carbon Dioxide 29 mmol/L (22-30); Chloride 102 mmol/L (98-107); Glucose 110 mg/dL (74-99); Non-African American GFR(CKD) 73 (>60 ml/min/1.73 sqM); Potassium 3.8 mmol/L (3.5-5.1); Sodium 138 mmol/L (137-145); Total Bilirubin 0.5 mg/dL (0.2-1.3); Total Protein 6.8 g/dL (6.3-8.2)
[2024-11-08] MEDS: buPROPion XL 300 MG TAB.ER.24H PO SCH (09:04)
[2024-11-08] MEDS: NICOTINE 14MG/24HR PATCH TRANSDERM SCH (09:04)
[2024-11-08 11:13] LABS: Chol/HDL Ratio 2.72 Ratio; LDL Cholesterol,Calculated 77.5 mg/dL (0.0-131.0); VLDL Calculation 12.34 mg/dL (5.00-40.00)
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
[2024-11-08] MEDS: PALIPERIDONE 6 MG TAB.ER.24 PO SCH (20:09)
--- NOTE | 2024-11-09 12:39 | P.PN ---
Progress Note - Text Progress Note Date: 11/09/24 Interval History: Patient was seen in the [facility] and was directable and agreeable to speak with director underwriter sales in the [facility] privately. She did not take her Invega last night, stating that she does not want medications and was not amenable to trying alternative medications. She reports adverse effects including weight gain with several psychotropic medications and requests to stop her injections stated that her previous outpatient psychiatrist put her on this. She continues to display grandiose delusions, stating that she has plans once discharged to travel to [facility], [facility] and [facility]. She was carrying her bag and states that she plans on leaving when she was finished speaking to me. She has upcoming plans to Carlton Benitez soon. She has plans on obtaining the unit purple and bringing in a artist's representative to draw pictures on the wall. She reports auditory hallucinations. At this time patient denies any suicidal or homicidal ideations, intent or plan. Mental Status Exam: General Appearance: Patient appears to be stated age is alert, directable, and cooperative. Behavior: Patient is calmly seated without any agitated behavior. Speech: Patient's speech is fluent and talkative Mood/Affect: Mood is "okay", affect is congruent and expansive. Suicidality/Homicidality: Patient denies having any suicidal or homicidal ideation intent or plan. Perceptions: Patient denies any visual hallucinations however she does report auditory hallucinations Though content/process: There is evidence of grandiose and nonbizarre delusions Memory and concentration: AOX3, grossly intact for the purposes of this session Judgment and insight: poor Assessment Bipolar 1 disorder, current episode manic with psychotic features History of PTSD Plan: -Patient continues to meet criteria for inpatient psychiatric admission for symptom stabilization and safety. Patient has not signed adult voluntary form and medication consent and was placed in patient's chart. -Medications: Continue Invega 6 mg at bedtime for psychosis, patient currently on Invega Sustenna IM 117 mg every 4 weeks next due on 11/17/2024, will plan on increasing this injection to 234 mg IM -When necessary Zyprexa for agitation/aggression. -Labs: WNL -SW on board for discharge planning. Encouraged the patient to participate in milieu. Currently awaiting deferral with ip attorney and court date.
--- NOTE | 2024-11-09 21:44 | P.MDCNMH ---
<Donny Schulz - Last Filed: 11/09/24 21:43> History of Present Illness H&P Date: 11/08/24 Patient is a 49 year old female with no significant past medical history admitted to the hospital for bipolar disorder, seen today in medical consultation for medical management. Patient initially presented to the ED for needing psychiatric evaluation. She had underlying history of schizophrenia for which she is on Invega along with Wellbutrin. She presented with delusional thoughts and erratic behavior. She has been admitted for bipolar disorder with current episode manic with psychotic features. She is being treated with olanzapine and paliperidone. 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 At the time of this interview patient denies fever, chills, shortness of breath, cough, chest pain, palpitations, abdominal pain, nausea, vomiting, hematuria, dysuria, hematochezia, melena, headache, slurred speech, numbness, tingling, dizziness, lightheadedness, blurred vision, double vision. Vitals T 97.1 F, NE 117 bpm, RR 18, BP 136/94, oxygen saturation 97% on room air Labs show WBC 7.29, hemoglobin 12.4, platelet count 265, sodium 138, potassium 3.8, creatinine 0.93, A1c 5.5, total bilirubin 0.5, triglycerides 61.7, LDL 77.5, total cholesterol 142 Urine toxicology is negative SARS-CoV-2 is negative Review of systems: Pertinent positives and negatives as discussed in HPI, a complete review of systems was performed and all other systems are negative. Physical examination: Vital signs reviewed General: nontoxic, no distress, appears at stated age Derm: warm, dry, intact Head: atraumatic, normocephalic, symmetric Cardiovascular: S1 S2 reg, no murmur Lungs: CTA bilateral, no rhonchi, no rales, no accessory muscle use Abdominal: soft, non-tender to palpation Extremities: No cyanosis, clubbing, or pedal edema. Neuro: Alert, Oriented, Gross neurological examination did not reveal any focal deficits. Assessment/Plan: Patient is a 49 year old female with no significant past medical history admitted to the hospital for bipolar disorder, seen today in medical consultation for medical management. #. Nicotine dependence Continue nicotine patch #. Constipation Continue milk of magnesia #. GI upset Continue Maalox 30 mL p.o. every 4 hours as needed #. Bipolar disorder Patient receiving Zyprexa and Invega per primary admitting team Continue acetaminophen and ibuprofen as needed for pain management Monitor vital signs Monitor CBC Monitor CMP Dictation was produced using [employer] dictation software. please excuse any grammatical, word or spelling errors. Donny Schulz MD PGY-1 IM Past Medical History Past Medical History: No Reported History Additional Past Medical History / Comment(s): Bipolar Disorder History of Any Multi-Drug Resistant Organisms: None Reported Past Surgical History: Section, Hernia Repair Additional Past Surgical History / Comment(s): oral surgery Past Anesthesia/Blood Transfusion Reactions: No Reported Reaction Past Psychological History: Bipolar Smoking Status: Never smoker Past Alcohol Use History: None Reported Past Drug Use History: None Reported - Past Family History Father Family Medical History: CVA/TIA, Diabetes Mellitus, Hypertension, Liver Disease, Renal Disease, Thyroid Disorder Mother Family Medical History: No Reported History Medications and Allergies Home Medications Medication Instructions Recorded Confirmed Type Natural Melatonin(Unknown Dose) 1 tab PO HS PRN 11/07/24 11/07/24 History Paliperidone Palmitate [Invega 117 mg IM Q28D 11/07/24 11/07/24 History Sustenna] buPROPion XL [Wellbutrin XL] 300 mg PO DAILY 11/07/24 11/07/24 History Allergies Allergy/AdvReac Type Severity Reaction Status Date / Time cariprazine [From Vraylar] AdvReac weight gain Verified 11/07/24 10:16 codeine AdvReac Hyper Verified 11/07/24 10:16 haloperidol [From Haldol] AdvReac agitation Verified 11/07/24 10:16 lorazepam [From Ativan] AdvReac Agression Verified 11/07/24 10:16 olanzapine [From Zyprexa] AdvReac weight gain Verified 11/07/24 10:16 paroxetine [From Paxil] AdvReac weight gain Verified 11/07/24 10:16 Physical Exam Vitals: Vital Signs Temp Pulse Resp BP Pulse Ox 11/08/24 09:00 97.1 F L 117 H 18 136/94 97 Cranial Nerve Examination - Cranial Nerves Cranial Nerve I- Olfactory: Intact Cranial Nerve II- Optic: Intact Cranial Nerve III- Oculomotor: Intact Cranial Nerve IV- Trochlear: Intact Cranial Nerve V- Trigeminal: Intact Cranial Nerve - Abducens: Intact Cranial Nerve VII- Facial: Intact Cranial Nerve VIII- Auditory: Intact Cranial Nerve IX- Glossopharyngeal: Intact Cranial Nerve X- Vagus: Intact Cranial Nerve XI- Accessory: Intact Cranial Nerve XII- Hypoglossal: Intact Results CBC & Chem 7: 11/08/24 07:14 11/08/24 07:14 Labs: Abnormal Lab Results - Last 24 Hours (Table) 11/08/24 11/08/24 Range/Units 07:14 07:14 Hct 36.5 L (37.2-46.3) % MPV 8.9 L (9.5-12.2) fL Glucose 110 H (74-99) mg/dL <Fredy Jorgensen - Last Filed: 11/11/24 06:23> History of Present Illness I Discussed the case with the resident and agree with the resident's findings I edited the assessment and plan as necessary as documented in the resident's note. Physical Exam Vitals: Vital Signs Temp Pulse Resp BP Pulse Ox 11/10/24 21:00 97.1 F L 109 H 16 143/86 98 11/10/24 09:00 98.6 F 137 H 128/84 98 Cranial Nerve Examination - Cranial Nerves Cranial Nerve II- Optic: Intact Cranial Nerve III- Oculomotor: Intact Cranial Nerve IV- Trochlear: Intact Cranial Nerve V- Trigeminal: Intact Cranial Nerve - Abducens: Intact Cranial Nerve VII- Facial: Intact Cranial Nerve VIII- Auditory: Intact Cranial Nerve IX- Glossopharyngeal: Intact Cranial Nerve X- Vagus: Intact Cranial Nerve XI- Accessory: Intact Cranial Nerve XII- Hypoglossal: Intact Results CBC & Chem 7: 11/08/24 07:14 11/08/24 07:14
--- NOTE | 2024-11-10 12:10 | P.PN ---
Progress Note - Text Progress Note Date: 11/10/24 Interval History: Patient was seen wandering the hallways and was directable and agreeable to sp eak with internal communications writer in the office. Patient appears more cooperative, taking her Invega last night and states she is willing to follow-up with [facility] and take her injections. She does continue to display grandiosity, referring to herself as Dr. Putnam, delusional thoughts expressed as her getting taller, stating that "I am SC4 and PCC". At this time patient denies any suicidal or homicidal ideations, intent or plan. Patient denies any auditory, visual hallucinations and denies any paranoia. Patient denies any side effects from the medications and has been compliant with meds. Mental Status Exam: General Appearance: Patient appears to be stated age is alert, directable, and cooperative. She is overweight with fair grooming and hygiene Behavior: Patient is calmly seated without any agitated behavior. Speech: Patient's speech is fluent and talkative Mood/Affect: Mood is improving mildly, affect is congruent and expansive. Suicidality/Homicidality: Patient denies having any suicidal or homicidal ideation intent or plan. Perceptions: Patient denies any visual hallucinations and denies any auditory hallucinations Though content/process: There is evidence of grandiosity, some bizarre delusions exhibited Memory and concentration: AOX3, grossly intact for the purposes of this session Judgment and insight: Improving mildly Assessment Bipolar 1 disorder, current episode manic with psychotic features History of PTSD Plan: -Patient continues to meet criteria for inpatient psychiatric admission for symptom stabilization and safety. Patient has not signed adult voluntary form and medication consent and was placed in patient's chart. -Medications: Continue Invega 6 mg at bedtime for psychosis with a plan to increase her Invega Sustenna IM every 4 weeks to 234 mg next due on 11/17/2024 -When necessary Zyprexa for agitation/aggression. -Labs: WNL -SW on board for discharge planning. Encouraged the patient to participate in milieu. Currently awaiting deferral with swage toolsetter and court date.
[2024-11-10] MEDS: OLANZapine 10 MG VIAL IM PRN (20:17)
[2024-11-11] MEDS: IBUPROFEN 600 MG TAB PO PRN (08:36)
--- NOTE | 2024-11-11 11:39 | P.PN ---
Subjective Progress Note Date: 11/11/24 Principal diagnosis: Bipolar I manic Patient was seen wandering the hallways and was directable and agreeable to speak with show card writer in the office. Patient appears more cooperative, taking her Invega last night and states she is willing to follow-up with [facility] and take her injections. She does continue to display grandiosity, referring to herself as Dr. Putnam, delusional thoughts expressed as her getting taller, stating that "I am SC4 and PCC". At this time patient denies any suicidal or homicidal ideations, intent or plan. Patient denies any auditory, visual hallucinations and denies any paranoia. Patient denies any side effects from the medications and has been compliant with meds. Mental Status Exam:Intense eye contact. General Appearance: Patient appears to be stated age is alert, directable, and cooperative. She is overweight with fair grooming and hygiene Behavior: Patient is calmly seated without any agitated behavior. Speech: Patient's speech is fluent and talkative but pressured and rambling. Mood/Affect: Mood is improving mildly, affect is congruent and expansive. Suicidality/Homicidality: Patient denies having any suicidal or homicidal ideation intent or plan. Perceptions: Patient denies any visual hallucinations and denies any auditory hallucinations Though content/process: There is evidence of grandiosity, some bizarre delusions exhibited. "I am just here to prove that I am sane so that I can carry weapons which I don't need because my hands are lethal weapons since I am . Memory and concentration: AOX3, grossly intact for the purposes of this session Judgment and insight: Improving mildly Assessment Bipolar 1 disorder, current episode manic with psychotic features History of PTSD Plan: -Patient continues to meet criteria for inpatient psychiatric admission for symptom stabilization and safety. Patient has not signed adult voluntary form and medication consent and was placed in patient's chart. -Medications: Continue Invega 6 mg at bedtime for psychosis with a plan to increase her Invega Sustenna IM every 4 weeks to 234 mg next due on 11/17/2024 -When necessary Zyprexa for agitation/aggression. -Labs: WNL -SW on board for discharge planning. Encouraged the patient to participate in milieu. Currently awaiting deferral with state's attorney and court date. Objective - Vital Signs Vital signs: Vital Signs Temp 97.1 F L 11/10/24 21:00 Pulse 109 H 11/10/24 21:00 Resp 16 11/10/24 21:00 BP 143/86 11/10/24 21:00 Pulse Ox 98 11/10/24 21:00 FiO2 - Labs CBC & Chem 7: 11/08/24 07:14 11/08/24 07:14
[2024-11-11] MEDS: ACETAMINOPHEN TAB 325 MG TAB PO PRN (16:40)
[2024-11-12] MEDS: OLANZapine 5 MG TAB PO PRN (01:57)
--- NOTE | 2024-11-12 12:54 | P.PN ---
Subjective Progress Note Date: 11/12/24 Principal diagnosis: Bipolar I manic Patient was seen sitting in the hallways and was directable and agreeable to speak with justowriter operator in the office. Patient appears more cooperative. She does continue to display grandiosity, however she is much calmer and redirectable and less off the cuff comments about her immense importance. At this time patient denies any suicidal or homicidal ideations, intent or plan. Patient denies any auditory, visual hallucinations and denies any paranoia. Patient denies any side effects from the medications and has been compliant with meds. Mental Status Exam:Intense eye contact. General Appearance: Patient appears to be stated age is alert, directable, and cooperative. She is overweight with fair grooming and hygiene Behavior: Patient is calmly seated without any agitated behavior. Speech: Patient's speech is fluent and talkative but pressured and rambling. Mood/Affect: Mood is improving mildly, affect is congruent and expansive. Suicidality/Homicidality: Patient denies having any suicidal or homicidal ideation intent or plan. Perceptions: Patient denies any visual hallucinations and denies any auditory hallucinations Though content/process: There is evidence of grandiosity, some bizarre delusions exhibited. "I am just here to prove that I am sane so that I can carry weapons which I don't need because my hands are lethal weapons since I am . Memory and concentration: AOX3, grossly intact for the purposes of this session Judgment and insight: Improving mildly Assessment seems to be calming down Bipolar 1 disorder, current episode manic with psychotic features History of PTSD Plan: No change in meds -Patient continues to meet criteria for inpatient psychiatric admission for symptom stabilization and safety. Patient has not signed adult voluntary form and medication consent and was placed in patient's chart. -Medications: Continue Invega 6 mg at bedtime for psychosis with a plan to increase her Invega Sustenna IM every 4 weeks to 234 mg next due on 11/17/2024 -When necessary Zyprexa for agitation/aggression. -Labs: WNL -SW on board for discharge planning. Encouraged the patient to participate in milieu. Currently awaiting deferral with ip attorney and court date. Objective - Vital Signs Vital signs: Vital Signs Temp 97.4 F L 11/12/24 09:00 Pulse 95 11/12/24 09:00 Resp 18 04/20/25 09:00 BP 115/71 11/12/24 09:00 Pulse Ox 98 11/12/24 09:00 FiO2 Intake & Output 11/11/24 11/12/24 11/12/24 18:59 06:59 18:59 Weight 99.8 kg - Labs CBC & Chem 7: 11/08/24 07:14 11/08/24 07:14
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
[2024-11-13] MEDS: PALIPERIDONE 6 MG TAB.ER.24 PO SCH (20:44)
--- NOTE | 2024-11-14 13:04 | P.PN ---
Progress Note - Text Progress Note Date: 11/14/24 Interval History: Patient was seen in the [facility] and was directable and agreeable to speak with tag writer in the office. She continues to display grandiose delusions, stated that she is on admission to provide care packages to all the patients here. 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 Patient request a wheelchair, stating that she wants to "walk out with dignity" after speaking to tag writer. She refers to herself as a doctor. She does report auditory hallucinations however states that they are more positive in nature, previously reporting negative hallucinations. At this time patient denies any suicidal or homicidal ideations, intent or plan. Patient denies any visual hallucinations. Patient denies any side effects from the medications and has been compliant with meds. Mental Status Exam: General Appearance: Patient appears to be stated age is alert, directable, and cooperative. Behavior: Patient is calmly seated without any agitated behavior. Speech: Patient's speech is fluent and talkative Mood/Affect: Mood is improving mildly, affect is congruent and constricted. Suicidality/Homicidality: Patient denies having any suicidal or homicidal ideation intent or plan. Perceptions: Patient denies any visual hallucinations however she does report auditory hallucinations Though content/process: There is evidence of grandiose delusions, nonbizarre delusions Memory and concentration: AOX3, grossly intact for the purposes of this session Judgment and insight: Improving mildly Assessment Bipolar 1 disorder, current episode manic with psychotic features History of PTSD Plan: -Patient continues to meet criteria for inpatient psychiatric admission for symptom stabilization and safety. Patient has not signed adult voluntary form and medication consent and was placed in patient's chart. -Medications: Continue Invega 12 mg at bedtime for psychosis, start lithium 300 mg twice daily for mood stabilization -When necessary Zyprexa for agitation/aggression. -Labs: WNL -SW on board for discharge planning. Encouraged the patient to participate in milieu. Patient did not defer, court scheduled for tomorrow
[2024-11-14] MEDS: LITHIUM CARBONATE 300 MG CAP PO SCH (21:59)
[2024-11-15] MEDS ORDERED: HALOPERIDOL LACTATE 5 MG/ML 1 ML VIAL IM PRN (13:37)
--- NOTE | 2024-11-15 13:43 | P.PN ---
Progress Note - Text Progress Note Date: 11/15/24 Interval History: Patient was seen [place] [facility] and was directable and agreeable to speak with senior copywriter in the [facility] privately. Patient continues to display grandiose delusions, stating "I am the [employer] and part of the [employer]". She continues to report auditory hallucinations that are positive in nature, good sleep overall. Patient attended court today to which her friend testified and reported that patient has been exhibiting these manic symptoms roughly 5 times a year, exhibiting mood lability including yelling and screaming at her neighbors and watering the neighborhood. At this time patient denies any suicidal or homicidal ideations, intent or plan. Patient denies any side effects from the medications and has been compliant with meds. Mental Status Exam: General Appearance: Patient appears to be stated age is alert, directable, and cooperative. Behavior: Patient is calmly seated without any agitated behavior. Speech: Patient's speech is fluent and talkative Mood/Affect: Mood is improving mildly, affect is congruent and constricted. Suicidality/Homicidality: Patient denies having any suicidal or homicidal ideation intent or plan. Perceptions: Patient denies any visual hallucinations however does report auditory hallucinations Though content/process: There is evidence of grandiose delusions, nonbizarre delusions Memory and concentration: AOX3, grossly intact for the purposes of this session Judgment and insight: Improving mildly Assessment Bipolar 1 disorder, current episode manic with psychotic features and rapid cycling History of PTSD Plan: -Patient continues to meet criteria for inpatient psychiatric admission for symptom stabilization and safety. Patient has not signed adult voluntary form and medication consent and was placed in patient's chart. -Medications: Discontinue Invega and start Haldol 5 mg at bedtime for psychosis with as needed IM backup per court order if patient refuses, continue lithium 300 mg twice daily for mood stabilization -When necessary Zyprexa for agitation/aggression. -Labs: WNL -SW on board for discharge planning. Encouraged the patient to participate in milieu. Patient court ordered today.
[2024-11-15] MEDS: haloperidoL 5 MG TAB PO SCH (20:47)
--- NOTE | 2024-11-16 12:44 | P.PN ---
Progress Note - Text Progress Note Date: 11/16/24 Interval History: Patient was seen in the [facility] and was directable and agreeable to speak with service writer in the office. Patient was upset that service writer due to court hearing yesterday. She displayed poor insight, stated that she is not mentally ill. She states her and her friend who testified in court yesterday have been solving miracles and Charles however she is upset at her as well. Patient was redirectable, ultimately agreeing to speak to her friend to make amends. She displayed grandiosity, stated that she went to [place] referring to herself as a black ops. She states that she is okay with working with [facility] and possibly doing counseling at [facility] to which this was encouraged. Her auditory hallucinations are at baseline, no worsening per patient. At this time patient denies any suicidal or homicidal ideations, intent or plan. Patient denies any visual hallucinations and denies any paranoia. Patient denies any side effects from the medications and has been compliant with meds, receiving no as needed backup's. Mental Status Exam: General Appearance: Patient appears to be stated age is alert, directable, and cooperative. Behavior: Patient is calmly seated without any agitated behavior. Speech: Patient's speech is fluent and talkative but interruptible Mood/Affect: Mood is improving mildly, affect is congruent and constricted. Suicidality/Homicidality: Patient denies having any suicidal or homicidal ideation intent or plan. Perceptions: Patient denies any visual hallucinations however reports stable, chronic auditory hallucinations Though content/process: There is evidence of grandiosity, nonbizarre delusions Memory and concentration: AOX3, grossly intact for the purposes of this session Judgment and insight: Improving mildly Assessment Bipolar 1 disorder, current episode manic with psychotic features and rapid cycling History of PTSD Plan: -Patient continues to meet criteria for inpatient psychiatric admission for symptom stabilization and safety. Patient has not signed adult voluntary form and medication consent and was placed in patient's chart. -Medications: Continue Haldol 5 mg at bedtime for psychosis with as needed IM backup per court order if patient refuses, lithium 300 mg twice daily for mood stabilization -When necessary Zyprexa for agitation/aggression. -Labs: TSH, creatinine WNL -SW on board for discharge planning. Encouraged the patient to participate in milieu. Patient court ordered yesterday. Anticipate discharge likely sometime next week pending transition to Haldol decanoate
[2024-11-17 09:33] VITALS: BMI 36.6
--- NOTE | 2024-11-17 13:10 | P.PN ---
Progress Note - Text Progress Note Date: 11/17/24 Interval History: Patient was seen in group and was directable and agreeable to speak with chief underwriter in the [place] privately. Patient was upset due to the current medications she is on, stating that she is willing to get the Invega injections but does not want to be on Haldol or lithium. Patient was reminded the reasonings why she is on Haldol and lithium as Invega was not working effectively as she is currently here in the hospital with lithium being a mood stabilizer however patient continued to deny any need for either 1 of those medications. She was reminded of the court order and encouraged to continue taking these medications. Patient was disorganized, talking about her missed treatment here at [facility] due to staff not providing a litter box for her emotional support animal however then later stating she [place] her [place] [facility] [place]. She continues to state how she will follow-up with [facility] upon discharge. At this time patient denies any suicidal or homicidal ideations, intent or plan. Patient denies any visual hallucinations and denies any paranoia. Patient denies any side effects from the medications and has been compliant with meds. Mental Status Exam: General Appearance: Patient appears to be stated age is alert, requires frequent redirection but overall cooperative. Behavior: Patient is calmly seated without any agitated behavior. She is irritable initially however more pleasant as the interview progresses Speech: Patient's speech is fluent and talkative but interruptible Mood/Affect: Mood is improving mildly, affect is congruent and constricted. Suicidality/Homicidality: Patient denies having any suicidal or homicidal ideation intent or plan. Perceptions: Patient denies any visual hallucinations however she reports stable, chronic auditory hallucinations Though content/process: There is evidence of grandiosity and disorganization in thoughts Memory and concentration: AOX3, grossly intact for the purposes of this session Judgment and insight: Improving mildly Assessment Bipolar 1 disorder, current episode manic with psychotic features and rapid cycling History of PTSD Plan: -Patient continues to meet criteria for inpatient psychiatric admission for symptom stabilization and safety. Patient has not signed adult voluntary form and medication consent and was placed in patient's chart. -Medications: Increase Haldol to 10 mg at bedtime for psychosis with as needed IM backup per court order if patient refuses, continue lithium 300 mg twice daily for mood stabilization -When necessary Zyprexa for agitation/aggression. -Labs: TSH, creatinine WNL -SW on board for discharge planning. Encouraged the patient to participate in milieu. Patient court ordered on Wednesday.
[2024-11-17] MEDS: haloperidoL 5 MG TAB PO SCH (22:15)
--- NOTE | 2024-11-18 07:19 | XR ---
EXAMINATION TYPE: XR shoulder complete LT DATE OF EXAM: 11/17/2024 10:11 PM INDICATION: Patient age:Female; 49 years old; Reason for study: pain; pain COMPARISON: None TECHNIQUE: The left shoulder was examined in AP, internally rotated and scapular Y projections. . FINDINGS: No evidence of acute osseous pathology, joint dislocation, or soft tissue swelling. The remaining por tions of the visualized chest are unremarkable. IMPRESSION: No acute osseous pathology. [facility], , 11/18/2024 7:17 AM
--- NOTE | 2024-11-18 16:59 | P.PN ---
Progress Note - Text Progress Note Date: 11/18/24 Dictation was produced using [employer] dictation software. Please excuse any grammatical, word or spelling errors. Interval history: Patient was seen in the [facility] and was directable and agreeable to speak with the singer songwriter in the office for psychiatric follow-up. She states that she is feeling good today, states that she still having body ache and shoulder pain since she was coloring on the wall, and her body is sore from doing so, states that she is upset about not having her emotional support cat. She states that depression and anxiety are at the low side, she rated both at 0/10, admitted to good sleep and appetite. She denied any current SI/HI or self harm. She states that she is hearing God all the time, "now when I'm talking to you, he is telling me that I'm doing the right thing," She admitted to seeing a spirit rim, states that she has been having AVH for years. States that however she is feeling more clear, and she can feel the spirit better. She has been taking her medications, states that she does not like to take Haldol, and would like to take Invega. Pt was reminded on her court order, and reported that she will be following up with [facility] however she does not like Dr. Basilio. She states that she will take the medication as long as she is here. The patient was updated on x- ray report which appeared to be without any acute process. Mental Status Exam: General Appearance: Patient appears to be stated age is alert, calm, overall cooperative. Behavior: Patient is calmly seated without any agitated behavior. She is pleasant during the interview Speech: Patient's speech is fluent and talkative but interruptible, argumentative at time mainly around her medication Mood/Affect: Mood is improving mildly, affect is congruent and constricted. Suicidality/Homicidality: Patient denies having any suicidal or homicidal ideation intent or plan. Perceptions: Patient reported that she has been having chronic auditory and visual hallucination, reported that she is always talking to God and she can see a spiritual rim, she reported that both AVH are chronic and supportive and that does not bother her. Though content/process: There is evidence of grandiosity and disorganization in thoughts, however overall mildly improved Memory and concentration: AOX3, grossly intact for the purposes of this session Judgment and insight: Improving mildly Assessment Bipolar 1 disorder, current episode manic with psychotic features and rapid cycling History of PTSD Assessment/Plan: Continue with current diagnosis. Patient continues to meet criteria for inpatient psychiatric admission for symptom stabilization and safety. Patient will be maintained on current psychotropic medication regimen which include Haldol 10 mg p.o. at bedtime with as needed IM backup per court order, and lithium 300 mg p.o. twice daily. She denied any current side effects, she denied any muscle stiffness, rigidity, abnormal movement, or drooling. Monitor for medication compliance and for any psychotropic medication side effects. Will continue to monitor ongoing response to treatment. E ncouraged participation in milieu.
--- NOTE | 2024-11-19 14:50 | P.PN ---
Progress Note - Text Progress Note Date: 11/19/24 Dictation was produced using [employer] dictation software. Please excuse any grammatical, word or spelling errors. Interval history: Patient was seen in her room and was directable and agreeable to speak with the junior copywriter in the office for psychiatric follow-up. The patient states that she is feeling well, states that she has been sleeping well, and reported that she feels like the new medication has been making her sleepy, and has a good appetite. States that depression and anxiety are at the low side, denied any current SI/HI or self harm. States that she is hearing God and "only good things," states that she hears the God voice all the time, and reported that to be helpful. Admitted to seeing God, and seeing spirits, "it is all depends on what he wants to show me." She has been compliant with her medication, and reported that she is not happy about it and would rather using Invega, pt states that she will be compliant while in the hospital. States that she is feeling "safe everywhere," and is getting along well with everyone. Pt reported that her shoulder still hurt, she was updated on the normal x-ray results. Mental Status Exam: General Appearance: Patient appears to be stated age is alert, calm, overall cooperative. Behavior: Patient is calmly seated without any agitated behavior. She is pleasant during the interview Speech: Patient's speech is fluent and talkative but interruptible, argumentative at time mainly around her medication Mood/Affect: Mood is improving mildly, affect is congruent and constricted. Suicidality/Homicidality: Patient denies having any suicidal or homicidal ideation intent or plan. Perceptions: Patient reported that she has been having chronic auditory and visual hallucination, reported that she is always talking to God and she can see a spiritual rim, she reported that both AVH are chronic and supportive and that does not bother her. Though content/process: There is evidence of grandiosity and disorganization in thoughts, however overall mildly improved Memory and concentration: AOX3, grossly intact for the purposes of this session Judgment and insight: Improving mildly Impression Bipolar 1 disorder, current episode manic with psychotic features and rapid cycling History of PTSD Assessment/Plan: Continue with current diagnosis. Patient continues to meet criteria for inpatient psychiatric admission for symptom stabilization and safety. Patient will be maintained on current psychotropic medication regimen which include Haldol 10 mg p.o. at bedtime with as needed IM backup per court order, and lithium 300 mg p.o. twice daily, lithium level results came back at 0.4. He has been compliant with that medication, she denied any current side effects, she denied any muscle stiffness, rigidity, abnormal movement, or drooling. Monitor for medication compliance and for any psychotropic medication side effects. Will continue to monitor ongoing response to treatment, no changes today. Encouraged participation in milieu.
--- NOTE | 2024-11-20 11:55 | P.PN ---
Progress Note - Text Progress Note Date: 11/20/24 Interval History: Patient was seen wandering the hallways and was directable and agreeable to sp eak with assembly instructions writer in the [place]. Patient reports feeling tired which she feels like the same adverse effect to the Haldol. She continues to display poor insight, feeling as though she does not need to take Haldol or lithium however has been adherent with these medications. She was reminded why she was not continued on Invega as she was still symptomatic. Patient overall did appear more calm, less labile however still exhibits some grandiosity. She was reminded of the court order which includes being transition to [facility] to which patient was resistant, stating that she will work with [facility] upon discharge. She states seeing a patient experience adverse effects to being put on Haldol decanoate however she was reminded of her current tolerance with the oral Haldol with close monitoring while in the hospital. She continues to express stable, chronic auditory hallucinations described as positive in nature. At this time patient denies any suicidal or homicidal ideations, intent or plan. Patient denies any visual hallucinations and denies any paranoia. Mental Status Exam: General Appearance: Patient appears to be stated age is alert, directable, and cooperative. Behavior: Patient is calmly seated without any agitated behavior. She appears more calm Speech: Patient's speech is fluent and nonpressured. Mood/Affect: Mood is improving mildly, affect is congruent and constricted. Suicidality/Homicidality: Patient denies having any suicidal or homicidal ideation intent or plan. Perceptions: Patient denies any visual hallucinations however she reports stable, chronic auditory hallucinations Though content/process: There is evidence of grandiosity however less intense than previous encounters Memory and concentration: AOX3, grossly intact for the purposes of this session Judgment and insight: Poor Assessment Bipolar 1 disorder, current episode manic with psychotic features and rapid cycling history of PTSD Plan: -Patient continues to meet criteria for inpatient psychiatric admission for symptom stabilization and safety. Patient has not signed adult voluntary form and medication consent and was placed in patient's chart. -Medications: Continue Haldol 10 mg at bedtime for psychosis with as needed IM backup per court order if patient refuses, lithium 300 mg twice daily for mood stabilization -When necessary Zyprexa for agitation/aggression. -Labs: [place] came back at 0.4 -SW on board for discharge planning. Encouraged the patient to participate in milieu. Patient court ordered last Wednesday. Patient to be transition to Haldol decanoate tomorrow with discharge plan for Wednesday
--- NOTE | 2024-11-21 12:06 | P.PN ---
Progress Note - Text Progress Note Date: 11/21/24 Interval History: Patient was seen wandering the hallways and was directable and agreeable to sp eak with senior grant writer in the office. Patient has been tending to her ADLs, attending groups and appears more calm with less fixation on delusions. She was agreeable with transitioning to long-acting Haldol today and was reminded of the court order and her need to comply with treatment both inpatient and outpatient in order to stay out of the hospital to which she acknowledged. She states living independently however might be able to get her mom to pick her up tomorrow. She reports stable, chronic auditory hallucinations described as God speaking positive things to her. At this time patient denies any suicidal or homicidal ideations, intent or plan. Patient denies any visual hallucinations and denies any paranoia. Patient denies any side effects from the medications and has been compliant with meds. Mental Status Exam: General Appearance: Patient appears to be stated age is alert, directable, and more cooperative. Behavior: Patient is calmly seated without any agitated behavior. Speech: Patient's speech is fluent and nonpressured. Mood/Affect: Mood is improving mildly, affect is congruent and constricted. Suicidality/Homicidality: Patient denies having any suicidal or homicidal ideation intent or plan. Perceptions: Patient denies any visual hallucinations however she reports stable, chronic auditory hallucinations described as God speaking positive things Though content/process: Superficially there are no delusional thoughts expressed with thought process linear and logical superficially Memory and concentration: AOX3, grossly intact for the purposes of this session Judgment and insight: Improving mildly Assessment Bipolar 1 disorder, current episode manic with psychotic features and rapid cycling History of PTSD Plan: -Patient continues to meet criteria for inpatient psychiatric admission for symptom stabilization and safety. Patient has not signed adult voluntary form and medication consent and was placed in patient's chart. -Medications: Haldol decanoate 100 mg IM to be given today, continue Haldol 10 mg at bedtime for psychosis with as needed IM backup per court order if patient refuses, lithium 300 mg twice daily for mood stabilization -When necessary Zyprexa for agitation/aggression. -Labs: [place] came back at 0.4 -SW on board for discharge planning. Encouraged the patient to participate in milieu. Court ordered last Wednesday. Anticipate discharge back home tomorrow after receiving GOULD today
[2024-11-21] MEDS: HALOPERIDOL DECANOATE 100 MG/ML 1 ML VIAL IM SCH (13:37)
[2024-11-22 10:19] VITALS: BP 113/55; PULSE 81; RESP 16; TEMP 98.5
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
== END 2024-11-22 14:52 | disposition home or self-care (01) | DRG 761 ==
LOC: EC 07:44 → EEVIPCON 07:44 → 3MHU 12:24
PROVIDERS: ADMIT Psychiatry & Neurology Psychiatry; ATTEND Psychiatry & Neurology Psychiatry
DX: F25.0 Schizoaffective disorder, bipolar type (principal); F10.20 Alcohol dependence, uncomplicated; F43.10 Post-traumatic stress disorder, unspecified; F41.9 Anxiety disorder, unspecified; K30 Functional dyspepsia; K59.00 Constipation, unspecified; Z91.51 Personal history of suicidal behavior; Z91.148 Patient's other noncompliance with medication regimen for other reason; Z79.899 Other long term (current) drug therapy
CPT/HCPCS: 80053; 80061; 80178; 80306; 82075; 83036; 84443; 85025; 87635; 99285